=== PATIENT | male | born 1935 | race African-American/Black ===

== ENCOUNTER 2017-01-15 14:57 | Observation (INO) | payer MEDICARE, MEDICAID ==
[2017-01-15 15:34] LABS: #Lymphocytes 1.6 thou/uL (1.20-3.40); #Monocytes 0.8 thou/uL (0.11-0.59); #Neutrophils 5.3 thou/uL (1.40-6.50); %Basophils 0.2 % (0.0-1.0); %Eosinophils 0.1 % (0.0-10.0); %Lymphocytes 21.1 % (21.0-51.0); %Monocytes 9.8 % (0.0-10.0); Hematocrit 39.2 % (42.0-52.0); Mean Platelet Volume 7.3 fL (7.4-10.4); Red Blood Cell (RBC) Count 3.86 mill/uL (4.70-6.10); White Blood Cell (WBC) Count 7.8 thou/uL (4.8-10.8)
[2017-01-15 16:06] LABS: ALT (SGPT) 10 U/L (8-55); AST (SGOT) 19 U/L (5-34); Alkaline Phosphatase 55 U/L (40-150); Anion Gap 13 mmol/L (10-20); BUN (Urea Nitrogen) 22 mg/dL (8.4-25.7); Bilirubin, Total 1.2 mg/dL (0.2-1.2); Calc. Creatinine Clearance 0 mL/min (70-130); Calcium 9.3 mg/dL (7.8-10.44); Carbon Dioxide 21 mmol/L (23-31); Chloride 109 mmol/L (98-107); Estimated GFR-MDRD 64; Globulin 3.7 g/dL (2.4-3.5); Lipase 37 U/L (8-78); Protein, Total 7.4 g/dL (5.8-8.1)
[2017-01-15 16:07] LABS: Bilirubin Negative (Negative); Blood, Urine Negative (Negative); Glucose, Urine (Dipstick) Negative (Negative); Ketone, Urine Negative (Negative); Nitrite Negative (Negative); Protein, Urine (Dipstick) Negative (Neg-Trace)
[2017-01-15 16:09] LABS: Bacteria/HPF None Seen HPF (None Seen); Hyaline Casts/LPF 4-6 HYALINE CAST LPF (0-3 Hyaline); RBC/HPF 0-3 HPF (0-3); Squamous Epithelial 0-3 HPF (0-3)
--- NOTE | 2017-01-15 16:13 | RAD ---
CHEST ONE VIEW: 01/15/17 HISTORY: 81-year-old male with altered mental status with weakness and hallucinations. Febrile to 101. COMPARISON: 11/23/16. FINDINGS: Monitor leads overlie the chest. Left ICD. Mild focal right hemidiaphragm elevation. No confluent pn eumonia, overt edema or pleural effusion. IMPRESSION: Mild stable chronic changes. No acute intrathoracic disease. POS: [facility]
[2017-01-15] MEDS ORDERED: cefTRIAXone\\ROCEPHIN 1 GM VIAL ONE (16:35)
[2017-01-15] MEDS ORDERED: cefTRIAXone\\ROCEPHIN 1 GM, Admixture Fee 1 EACH in Sodium Chloride 0.9% 100 ML IVPB SCH ×2 (16:45→22:00)
[2017-01-15] MEDS ORDERED: Acetaminophen 325 MG TAB PO PRN (18:16)
[2017-01-15] MEDS ORDERED: Acetaminophen 650 MG Suppository PR PRN (18:16)
--- NOTE | 2017-01-15 18:43 | HP ---
PRIMARY CARE PHYSICIAN: Sammi Barrow M.D. CHIEF COMPLAINT: Altered mental status. HISTORY OF PRESENT ILLNESS: Mr. Ryder is a pleasant 81-year-old gentleman who was [place] [facility]. He was transferred [facility] the [facility] from [facility] [place]. He reportedly was being combative and was hallucinating at the [facility]. Patient d oes not recall what happened or why he is in the hospital. He denies any chest pain or shortness of breath. He denies any fevers or chills. He denies any nausea or vomiting. He has reportedly had decreased oral intake. Please note that patient is unable to provide any significant history. History was obtained from re view of medical records and from discussion with the emergency room physician. REVIEW OF SYSTEM: The following complete review of systems was negative, unless otherwise mentioned in the HPI or below: Constitutional: Weight loss or gain, sense of well-being, ability to conduct usual activities, exer cise tolerance. Skin/Breast: Rash, itching, changes in hair growth or loss, nail changes, breast lumps, tenderness, swelling, nipple discharge. Eyes: Vision, double vision, tearing, blind spots, pain. ENT/Mouth: Headaches (location, time of onset, duration, precipitating factors), vertigo, lightheadedness, injury. Vision, double vision, tearing, blind spots, pain, nose bleeding, colds, obstruction, discharge, dental difficulties, gingival bleeding, dentures, neck stif fness, pain, tenderness, masses in thyroid or other areas Cardiovascular: Precordial pain, substernal distress, palpitations, syncope, dyspnea on exertion, o rthopnea, nocturnal paroxysmal dyspnea, edema, cyanosis, hypertension, heart murmurs, varicosities, phlebitis, claudication. Respiratory: Pain, shortness of breath, wheezing, stridor, cough, hemoptysis, fever or night sweats Gastrointestinal: Poor appetite, dysphagia, indigestion, abdominal pain, heartburn, eructation, nathalia sea, vomiting, hematemesis, jaundice, constipation, or diarrhea, abnormal stools (tank-colored, johnathon y, bloody, greasy, foul smelling), flatulence, hemorrhoids, recent changes in bowel habits. Genitourinary: Urgency, frequency, dysuria, nocturia, hematuria, polyuria, oliguria, unusual (or ch eliana in) color of urine, stones, hesitancy, change in size of stream, dribbling, acute retention or incontinence, libido, potency. Musculoskeletal: Pain, swelling, redness or heat of muscles or joints, limitation, of motion, muscular weakness, atrophy, cramps. Neurologic/Psychiatric: Convulsions, paralyses, tremor, incoordination, parasthesias, difficulties with memory of speech, sensory or motor disturbances, or muscular coordination (ataxia, tremor), emo tional problems, anxiety, depression, previous psychiatric care, unusual perceptions, hallucinations . Allergy/Immunologic: Skin rash, anemia, bleeding tendency, polydipsia, polyuria, intolerance to hea t or cold. 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 PSYCHIATRIC HISTORY: Significant for anxiety and depression. PAST SURGICAL HISTORY: Significant for AICD placement, cardiac catheterization in 1998 which showed mild triple vessel coronary artery disease ALLERGIES: No known drug allergies. CURRENT MEDICATIONS: Aspirin 81 mg daily, Coreg 3.125 mg 2 times a day, doxazosin 2 mg daily, potas sium chloride 10 mEq daily, Lasix 20 mg daily, Lexapro 20 mg daily, lisinopril 2.5 mg daily, trazodo ne 25 mg daily, multivitamins 1 tablet daily, MiraLax 17 grams daily, milk of magnesia 30 mL every 1 2 hours as needed, lovastatin 20 mg daily, Tylenol 650 g every 6 hours as needed. SOCIAL HISTORY: The patient denies tobacco use, alcohol use or recreational drug use. FAMILY HISTORY: Several family members with hypertension and heart disease. CODE STATUS: I could not elicit his code status. This will need to be clarified. PHYSICAL EXAMINATION: GENERAL: Mr. Ryder is awake and alert, not in acute distress. VITAL SIGNS: Blood pressure is 132/79, pulse is 80, he is breathing at rate of 20 and saturating 99 % on room air. He is afebrile. When he presented to the emergency room, he had a pulse of 114 and respiratory rate of 21. EYES: No scleral icterus. No conjunctival pallor. ENT: Moist mucosal membranes. No oropharyngeal erythema or exudates. NECK: Supple, nontender, normal range of movement. Trachea is midline. RESPIRATORY: Accessory muscles of breathing are not active. Chest wall movements are symmetric myron aterally. LUNGS: Clear to auscultation without wheeze, rhonchi or crepitations. CARDIOVASCULAR: S1 and S2 are heard, regular. LUNGS: Peripheral pulses palpable. No carotid bruit, no pericardial rub. ABDOMEN: Soft, nontender, bowel sounds heard, no hepatomegaly, no splenomegaly. NEUROLOGIC: Cranial nerves II-XII are intact. Deep tendon reflexes are 2+. PSYCHIATRIC: Normal mood and normal affect, patient is oriented to person, knows he is in the hospi don, but thinks it is in [place], he is not oriented to time. MUSCULOSKELETAL: Power is 5/5 in all 4 extremities. He has trace bilateral lower extremity edema. SKIN: No rashes or subcutaneous nodules. LYMPHATIC: No cervical lymphadenopathy. LABORATORY DATA: Mr. Ryder' labs and investigations were reviewed. I reviewed his electrocardiog sury, which shows normal sinus rhythm, no ST changes to suggest an acute coronary syndrome. I also r eviewed his chest x-ray, which does not show any pulmonary infiltrates. Laboratory investigation sh ow a normal white count, macrocytic anemia with hemoglobin 12.6, normal platelet count, normal sodiu m, normal potassium, elevated creatinine of 1.31, last known creatinine 1.25 on 11/30/2016, unremark able liver profile, normal lipase and urinalysis that is positive for moderate amount of leukocyte e sterase. ASSESSMENT AND PLAN: Mr. Ryder is a pleasant 81-year-old gentleman who was seen at [facility] on 01/15/2017. His problem list includes: 1. Acute encephalopathy, etiology unclear. It could be infectious secondary to urinary tract infe ction. Other etiologies are also possible. We will admit patient to the hospital for workup and tr eatment. We will check troponin. We will also check CT scan of the brain. 2. Sepsis: Mr. Ryder' presentation meets the criteria for sepsis, suspected source of infection in the urine. He will be treated with antibiotics. He will receive gentle hydration, given his his tory of congestive heart failure. 3. Urinary tract infection. We will continue ceftriaxone, which has already been started by the em ergency room physician, await urine cultures and blood cultures. 4. Hypertension. Continue home medications, monitor vital signs and titrate antihypertensives as n eeded. 5. Acute renal insufficiency: Mild, and recheck creatinine after providing hydration. 6. Coronary artery disease. Patient has a history of coronary artery disease. We will check his t roponins. 7. Benign prostatic hypertrophy: Stable. Many thanks for allowing me to participate in your patient's care. Please feel free to contact me w ith any questions or concerns. LEVEL OF RISK: High. LEVEL OF COMPLEXITY: High.
--- NOTE | 2017-01-15 18:51 | CT ---
BRAIN CT WITHOUT IV CONTRAST: 01/15/17 HISTORY: 81-year-old male with altered mental status. COMPARISON: 11/30/16. FINDINGS: Bilateral atrophy and chronic white matter ischemic changes which are fairly extensive but stable fr om prior exam. No focal mass or midline shift. No intra or extra-axial hemorrhage. IMPRESSION: Marked atrophy and chronic white matter ischemic changes, stable. No mass or bleed. POS: [facility]
[2017-01-15 18:57] LABS: Troponin I 0.045 ng/mL (< 0.028)
[2017-01-15] MEDS: Sodium Chloride 0.9% 1,000 ML IV SCH (21:35)
[2017-01-15 22:18] LABS: Troponin I 0.067 ng/mL (< 0.028)
[2017-01-16 03:07] VITALS: BMI 21.9
[2017-01-16 04:12] LABS: Anion Gap 9 mmol/L (10-20); BUN (Urea Nitrogen) 21 mg/dL (8.4-25.7); Calc. Creatinine Clearance 50 mL/min (70-130); Calcium 8.8 mg/dL (7.8-10.44); Carbon Dioxide 26 mmol/L (23-31); Chloride 112 mmol/L (98-107); Estimated GFR-MDRD 82
[2017-01-16 04:29] LABS: Hematocrit 32.2 % (42.0-52.0); Neutrophil 60 % (42-75); Red Blood Cell (RBC) Count 3.18 mill/uL (4.70-6.10); White Blood Cell (WBC) Count 6.6 thou/uL (4.8-10.8)
--- NOTE | 2017-01-16 07:52 | PDOC.PN ---
- Subjective Encounter Start Date: 01/16/17 Encounter Start Time: 07:15 Subjective: RESTING COMFORTABLY, NO BEHAVIOR ISSUS PER LOAN SERVICING OFFICER. - Objective MAR Reviewed: Yes Vital Signs & Weight: Vital Signs (12 hours) Temp Pulse Resp BP Pulse Ox 01/16/17 04:00 98.1 F 77 18 114/77 100 01/16/17 00:00 98.1 F 76 18 120/66 100 01/15/17 20:00 97 F L 78 18 120/66 100 Weight Weight 139 lb 15.896 oz Result Diagrams: 01/16/17 03:39 01/16/17 03:39 Phys Exam - Physical Examination Constitutional: NAD HEENT: PERRLA, moist MMs TEMPORAL WASTING Neck: supple, full ROM Respiratory: clear to auscultation bilateral Cardiovascular: RRR Gastrointestinal: soft, non-tender Musculoskeletal: no edema Neurological: moves all 4 limbs Deviation from normal: ALERT AND COOPERATIVE Skin: no rash Dx/Plan (1) UTI (urinary tract infection) Status: Acute (2) Altered mental status Code(s): R41.82 - ALTERED MENTAL STATUS, UNSPECIFIED Status: Acute (3) Alzheimer's dementia Code(s): G30.9 - ALZHEIMER'S DISEASE, UNSPECIFIED Status: Chronic (4) BPH (benign prostatic hyperplasia) Code(s): N40.0 - BENIGN PROSTATIC HYPERPLASIA WITHOUT LOWER URINRY TRACT SYMP Status: Chronic (5) CAD (coronary artery disease) Code(s): I25.10 - ATHSCL HEART DISEASE OF [place] CORONARY ARTERY W/O ANG PCTRS Status: Chronic - Plan continue antibiotics, social welfare clerk LOAN SERVICING OFFICER REPORTS PATIENT COOPERATIVE. THEY REPORT THAT HE WAS -: VERY HUNGRY AND COVERED IN DRY FECES IF HE WAS NEGLECTED. -: WILL GET CM AND SS INVOLVED * .
[2017-01-16] MEDS ORDERED: traZODone HCl 50 MG TAB PO PRN (07:54)
[2017-01-16] MEDS ORDERED: Acetaminophen 325 MG TAB PO PRN (07:54)
[2017-01-16] MEDS ORDERED: Milk Of Magnesia 30 ML UDCUP PO PRN (07:54)
[2017-01-16] MEDS: Multivitamin W/ Minerals 1 TAB PO SCH (09:02)
[2017-01-16] MEDS: Carvedilol 3.125 MG TAB PO SCH ×2 (09:03→17:24)
[2017-01-16] MEDS: Escitalopram Oxalate 20 mg Tablet PO SCH (09:03)
[2017-01-16] MEDS: Lisinopril 2.5 MG TAB PO SCH (09:03)
[2017-01-16] MEDS: Aspirin 81 mg Enteric Coated Tablet PO SCH (09:03)
[2017-01-16] MEDS: Furosemide 20 MG TAB PO SCH (09:04)
[2017-01-16] MEDS: Potassium Chloride 10 MEQ TAB PO SCH (09:23)
[2017-01-16] MEDS: Sodium Chloride 0.9% 1,000 ML IV SCH (15:55)
[2017-01-16] MEDS ORDERED: Simvastatin 5 MG TAB PO SCH (17:00)
[2017-01-16] MEDS ORDERED: cefTRIAXone\\ROCEPHIN 1 GM, Admixture Fee 1 EACH in Sodium Chloride 0.9% 100 ML IVPB SCH ×6 (18:00)
[2017-01-16] MEDS ORDERED: Doxazosin 2 MG TAB PO SCH (21:00)
[2017-01-17 04:18] LABS: #Basophils 0.1 thou/uL (0.0-0.2); #Eosinphils 0.3 thou/uL (0.0-0.7); #Lymphocytes 1.7 thou/uL (1.20-3.40); #Monocytes 0.7 thou/uL (0.11-0.59); #Neutrophils 2.8 thou/uL (1.40-6.50); %Eosinophils 4.7 % (0.0-10.0); %Monocytes 12.9 % (0.0-10.0); Hematocrit 32.1 % (42.0-52.0); Mean Platelet Volume 7.6 fL (7.4-10.4); Red Blood Cell (RBC) Count 3.12 mill/uL (4.70-6.10); White Blood Cell (WBC) Count 5.6 thou/uL (4.8-10.8)
[2017-01-17 04:36] LABS: Anion Gap 9 mmol/L (10-20); BUN (Urea Nitrogen) 17 mg/dL (8.4-25.7); Calc. Creatinine Clearance 51 mL/min (70-130); Calcium 8.3 mg/dL (7.8-10.44); Carbon Dioxide 26 mmol/L (23-31); Chloride 110 mmol/L (98-107); Estimated GFR-MDRD 84
[2017-01-17] MEDS: Aspirin 81 mg Enteric Coated Tablet PO SCH (08:30)
[2017-01-17] MEDS: Lisinopril 2.5 MG TAB PO SCH (08:30)
[2017-01-17] MEDS: Escitalopram Oxalate 20 mg Tablet PO SCH (08:30)
[2017-01-17] MEDS: Carvedilol 3.125 MG TAB PO SCH (08:30)
[2017-01-17] MEDS: Furosemide 20 MG TAB PO SCH (08:31)
[2017-01-17] MEDS: Multivitamin W/ Minerals 1 TAB PO SCH (08:31)
[2017-01-17] MEDS: Potassium Chloride 10 MEQ TAB PO SCH (08:31)
--- NOTE | 2017-01-17 08:57 | DIS ---
DATE OF ADMISSION: 01/15/2017 DATE OF DISCHARGE: 01/17/2017 PRIMARY DISCHARGE DIAGNOSIS: Altered mental status. SECONDARY DIAGNOSIS: Urinary tract infection. HOSPITAL COURSE: The patient was admitted from [facility] secondary to being combated and being altered. The patient was found to have a urinalysis that had moderate leukocyte esterase. No bacteria was seen and all urine and blood cultures were negative. The patient was treated for possible toxic metabolic encephalopathy from urinary tract infection. He received 3 doses of Roceph in. The patient was calm and cooperative with his entire stay here. No problems with nursing staff or during physician examinations. The patient was alert and oriented to person and place upon day of discharge. He was deemed stable to return back to the halfway with no additional medication s. CONSULTATIONS: None. PROCEDURES: None. DISCHARGE DISPOSITION: To [facility]. DISCHARGE DIET: Heart healthy. DISCHARGE ACTIVITIES: As tolerated. DISCHARGE MEDICATIONS: He is to resume his home medication list. PHYSICAL EXAMINATION: GENERAL: He is calm and cooperative, in no acute distress. HEAD: Normocephalic, atraumatic. There is bilateral temporal wasting. EYE: Extraocular muscles intact. LUNGS: Clear to auscultation. CARDIAC: Regular rate and rhythm. ABDOMEN: Nontender, nondistended. EXTREMITIES: No clubbing, cyanosis or edema. FOLLOWUP: The patient is to follow up with his PCP within 2-3 weeks.
[2017-01-17 12:07] VITALS: BP 100/61; TEMP 97.4
[2017-01-17] MEDS: Sodium Chloride 0.9% 1,000 ML IV SCH (13:12)
[2017-01-17] MEDS ORDERED: cefTRIAXone\\ROCEPHIN 1 GM, Syringe 0.4 ML in Sterile Water 9.6 ML SLOW IVP SCH (18:00)
--- NOTE | 2017-01-22 15:17 | EKG ---
Test Reason : Blood Pressure : / mmHG Vent. Rate : 095 BPM Atrial Rate : 095 BPM P-R Int : 172 ms QRS Dur : 128 ms QT Int : 398 ms P-R-T Axes : 086 -44 105 degrees QTc Int : 500 ms Normal sinus rhythm Left axis deviation Left bundle branch block No STEMI Abnormal ECG Confirmed by MIKE CASTILLO M.D. ([id number]), film editor JACKELIN SIERRA ([id number]) on 01/22/2017 3:17:39 PM Referred By: Confirmed By:MIKE CASTILLO M.D.
== END 2017-01-17 15:28 ==
LOC: ERS 14:57 → ONC 17:55
PROVIDERS: ADMIT Internal Medicine; ATTEND Internal Medicine
DX: R41.82 Altered mental status, unspecified (principal); N39.0 Urinary tract infection, site not specified; I11.0 Hypertensive heart disease with heart failure; I50.22 Chronic systolic (congestive) heart failure; I69.351 Hemiplegia and hemiparesis following cerebral infarction affecting right dominant side; I69.328 Other speech and language deficits following cerebral infarction; H54.8 Legal blindness, as defined in USA; I34.0 Nonrheumatic mitral (valve) insufficiency; I25.10 Atherosclerotic heart disease of native coronary artery without angina pectoris; N40.0 Benign prostatic hyperplasia without lower urinary tract symptoms; R27.0 Ataxia, unspecified; R53.81 Other malaise; F32.9 Major depressive disorder, single episode, unspecified; F41.9 Anxiety disorder, unspecified; Z79.82 Long term (current) use of aspirin; Z79.899 Other long term (current) drug therapy; Z95.810 Presence of automatic (implantable) cardiac defibrillator; Z98.890 Other specified postprocedural states; Z87.891 Personal history of nicotine dependence
CPT/HCPCS: 51701; 70450; 71010; 80048 ×2; 80053; 82140; 82553 ×2; 83690; 84484 ×2; 85025 ×3; 87040; 87086; 93005; 96361 ×4; 96366; 96374; 99285; G0378; 36415; 81003; 81015; A4216; J0696; J7050

== ENCOUNTER 2017-01-21 18:26 | Emergency (ER) | payer MEDICARE, MEDICAID ==
[2017-01-21 19:44] LABS: #Lymphocytes 1.5 thou/uL (1.20-3.40); #Monocytes 0.7 thou/uL (0.11-0.59); #Neutrophils 3.3 thou/uL (1.40-6.50); %Basophils 0.6 % (0.0-1.0); %Eosinophils 0.4 % (0.0-10.0); %Lymphocytes 26.5 % (21.0-51.0); Hematocrit 37.2 % (42.0-52.0); Mean Platelet Volume 7.5 fL (7.4-10.4); Red Blood Cell (RBC) Count 3.66 mill/uL (4.70-6.10); White Blood Cell (WBC) Count 5.5 thou/uL (4.8-10.8)
[2017-01-21 20:05] LABS: ALT (SGPT) 8 U/L (8-55); AST (SGOT) 17 U/L (5-34); Alkaline Phosphatase 58 U/L (40-150); Anion Gap 11 mmol/L (10-20); BUN (Urea Nitrogen) 16 mg/dL (8.4-25.7); Calc. Creatinine Clearance 0 mL/min (70-130); Calcium 9.3 mg/dL (7.8-10.44); Carbon Dioxide 26 mmol/L (23-31); Chloride 106 mmol/L (98-107); Estimated GFR-MDRD 70; Globulin 3.6 g/dL (2.4-3.5); Protein, Total 7.1 g/dL (5.8-8.1)
[2017-01-21 20:08] LABS: Lactic Acid - Sepsis 1.4 mmol/L (0.5-2.2)
[2017-01-21 21:08] LABS: Bilirubin Negative (Negative); Blood, Urine Negative (Negative); Glucose, Urine (Dipstick) Negative (Negative); Ketone, Urine Trace mg/dL (Negative); Nitrite Negative (Negative); Protein, Urine (Dipstick) Negative (Neg-Trace)
[2017-01-21 21:10] LABS: Bacteria/HPF None Seen HPF (None Seen); Hyaline Casts/LPF 0-3 HYALINE CAST LPF (0-3 Hyaline); Squamous Epithelial 0-3 HPF (0-3); WBC/HPF 0-3 HPF (0-3)
--- NOTE | 2017-01-21 21:21 | RAD ---
PORTABLE UPRIGHT FRONTAL CHEST RADIOGRAPH 01/21/17 COMPARISON: 01/15/17 HISTORY: Altered mental status, urinary tract infection. FINDINGS: The heart and mediastinal contours are stable. Stable single lead left sided AICD, lead overlying re gion of right ventricle. No pneumothorax, pleural fluid, focal consolidation, or alveolar edema. IMPRESSION: No acute findings. POS: [facility]
--- NOTE | 2017-01-21 21:50 | RAD ---
TWO VIEWS OF ABDOMEN 01/21/17 COMPARISON: None. HISTORY: Abdominal distention, altered mental status. Dysuria and foul smelling urine. FINDINGS: Upright imaging demonstrates no evidence for free intraperitoneal air. There is mild gaseous distent ion on supine imaging, particularly in the region of the sigmoid colon. No evidence for small bowel obstruction. Single lead transvenous pacing device in place. IMPRESSION: Mild gaseous distention of the sigmoid colon. No evidence for small bowel obstruction or free intrap eritoneal air. If further assessment for abdominal distention is clinically warranted, CT suggested. POS: [facility]
--- NOTE | 2017-03-18 15:05 | EKG ---
Test Reason : Blood Pressure : / mmHG Vent. Rate : 088 BPM Atrial Rate : 088 BPM P-R Int : 166 ms QRS Dur : 136 ms QT Int : 398 ms P-R-T Axes : 064 -54 086 degrees QTc Int : 481 ms Normal sinus rhythm Left axis deviation Non-specific intra-ventricular conduction block Nonspecific T wave abnormality Abnormal ECG When compared with ECG of 15-JAN-2017 No significant change was found Confirmed by RITA GUDINO, EDGAR Sanders ([id number]), newspaper copy editor JACKELIN SIERRA ([id number]) on 03/18/2017 3:05:01 PM Referred By: Confirmed By:EDGAR SALINAS MD
== END 2017-01-22 00:16 | disposition home or self-care (01) ==
LOC: ERS 18:26
DX: F03.90 Unspecified dementia, unspecified severity, without behavioral disturbance, psychotic disturbance, mood disturbance, and anxiety (principal); E78.5 Hyperlipidemia, unspecified; F32.9 Major depressive disorder, single episode, unspecified; F41.9 Anxiety disorder, unspecified; I11.0 Hypertensive heart disease with heart failure; I50.9 Heart failure, unspecified; I25.2 Old myocardial infarction; Z86.73 Personal history of transient ischemic attack (TIA), and cerebral infarction without residual deficits; N40.0 Benign prostatic hyperplasia without lower urinary tract symptoms; Z79.82 Long term (current) use of aspirin; Z79.899 Other long term (current) drug therapy
CPT/HCPCS: 36415; 51701; 71010; 74020; 80053; 81003; 81015; 83605; 85025; 93005

== ENCOUNTER 2017-11-18 00:11 | Emergency (ER) | payer MEDICARE, MEDICAID ==
[2017-11-18 01:24] LABS: Bilirubin Small (Negative); Blood, Urine Negative (Negative); Clarity CLEAR (Clear); Glucose, Urine (Dipstick) Negative (Negative); Leukocyte Moderate (Negative); Nitrite Negative (Negative); Protein, Urine (Dipstick) Negative (Neg-Trace); Specific Gravity, Urine 1.021 (1.002-1.036); pH, Urine 5.5 (5.0-9.0)
[2017-11-18 01:27] LABS: Bacteria/HPF None Seen HPF (None Seen); Squamous Epithelial 0-3 HPF (0-3)
[2017-11-18 01:33] LABS: Pathc Cast-AUWi Flag 2.61 (0-2.49)
[2017-11-18 01:59] LABS: Manual Microscopic Reviewed? No Path Casts Seen
[2017-11-18] MEDS ORDERED: Ondansetron HCl/PF 4 MG/2 ML Vial ONE (02:49)
== END 2017-11-18 03:17 ==
LOC: ERS 00:11
DX: N39.0 Urinary tract infection, site not specified (principal); F03.90 Unspecified dementia, unspecified severity, without behavioral disturbance, psychotic disturbance, mood disturbance, and anxiety; E78.5 Hyperlipidemia, unspecified; E56.9 Vitamin deficiency, unspecified; I11.0 Hypertensive heart disease with heart failure; I50.9 Heart failure, unspecified; Z86.73 Personal history of transient ischemic attack (TIA), and cerebral infarction without residual deficits; F41.9 Anxiety disorder, unspecified; F32.9 Major depressive disorder, single episode, unspecified; Z79.82 Long term (current) use of aspirin; Z79.01 Long term (current) use of anticoagulants; Z79.899 Other long term (current) drug therapy
CPT/HCPCS: 81003; 81015; 99285; J2405

== ENCOUNTER 2018-02-14 20:33 | Inpatient (IN) | payer MEDICARE, MEDICAID ==
[2018-02-14 21:05] LABS: #Eosinphils 0.2 thou/uL (0.0-0.7); #Lymphocytes 2.5 thou/uL (1.20-3.40); #Neutrophils 3.7 thou/uL (1.40-6.50); %Basophils 0.1 % (0.0-1.0); %Eosinophils 3.4 % (0.0-10.0); %Lymphocytes 34.2 % (21.0-51.0); %Monocytes 12.9 % (0.0-10.0); %Neutrophils 49.4 % (42.0-75.0); Hemoglobin 11.2 g/dL (14.0-18.0); Mean Corpuscular HGB CONC 32.3 g/dL (32.0-36.0); Mean Corpuscular Hemoglobin 32.6 pg (27.0-31.0); Mean Platelet Volume 8.1 fL (7.4-10.4); Platelet Count 136 thou/uL (130-400); Red Blood Cell (RBC) Count 3.43 mill/uL (4.70-6.10); White Blood Cell (WBC) Count 7.4 thou/uL (4.8-10.8)
[2018-02-14 21:25] LABS: ALT (SGPT) 17 U/L (8-55); AST (SGOT) 30 U/L (5-34); Albumin 3.2 g/dL (3.4-4.8); Alkaline Phosphatase 72 U/L (40-150); Anion Gap 12 mmol/L (10-20); BUN (Urea Nitrogen) 18 mg/dL (8.4-25.7); Bilirubin, Total 0.9 mg/dL (0.2-1.2); Calc. Creatinine Clearance 0 mL/min (70-130); Calcium 8.6 mg/dL (7.8-10.44); Carbon Dioxide 26 mmol/L (23-31); Chloride 104 mmol/L (98-107); Estimated GFR-MDRD 62; Globulin 3.4 g/dL (2.4-3.5); Glucose 218 mg/dL (83-110); Potassium 3.9 mmol/L (3.5-5.1); Protein, Total 6.6 g/dL (5.8-8.1); Sodium 138 mmol/L (136-145)
[2018-02-14 21:26] LABS: CKMB 1.1 ng/mL (0-6.6); Troponin I 0.051 ng/mL (< 0.028)
--- NOTE | 2018-02-14 21:38 | RAD ---
PORTABLE UPRIGHT FRONTAL CHEST RADIOGRAPH: 02/14/18 COMPARISON: 01/21/17. HISTORY: Dyspnea, sepsis alert. FINDINGS: The heart and mediastinal contours are stable. Stable single lead AICD. Elevation of right hemidiaphr agm noted. No pneumothorax, pleural fluid, lobar consolidation, or alveolar edema. IMPRESSION: No acute findings. POS: [facility]
[2018-02-14] MEDS ORDERED: Acetaminophen 500 MG TAB ONE (21:52)
[2018-02-14 22:00] LABS: Bilirubin Negative (Negative); Blood, Urine Negative (Negative); Clarity CLEAR (Clear); Glucose, Urine (Dipstick) 100 mg/dL (Negative); Leukocyte Moderate (Negative); Nitrite Negative (Negative); Protein, Urine (Dipstick) Negative (Neg-Trace); Specific Gravity, Urine 1.017 (1.002-1.036)
[2018-02-14 22:19] LABS: Hyaline Casts/LPF 0-3 HYALINE CAST LPF (0-3 Hyaline); RBC/HPF 0-3 HPF (0-3); Squamous Epithelial 0-3 HPF (0-3)
[2018-02-14 22:20] LABS: Bacteria/HPF Rare-Few HPF (None Seen)
[2018-02-14] MEDS ORDERED: Piperacillin/Tazobactam 4.5 GM VIAL ONE (22:48)
[2018-02-15] MEDS ORDERED: Albuterol Sulfate 2.5 mg/3 ml Neb ONE (00:12)
[2018-02-15 01:13] LABS: Lactic Acid 2.1 mmol/L (0.5-2.2)
[2018-02-15] MEDS ORDERED: Bisacodyl 10 MG SUPP PR PRN (08:47)
[2018-02-15] MEDS ORDERED: Zolpidem Tartrate 5 MG TAB PO PRN (08:47)
[2018-02-15] MEDS ORDERED: Acetaminophen 325 MG TAB PO PRN (08:47)
[2018-02-15] MEDS ORDERED: Senokot S 8.6-50 MG TAB PO PRN (08:47)
[2018-02-15] MEDS ORDERED: HYDROcodone/Acetaminophen 5/325 mg Tablet PO PRN (08:47)
[2018-02-15] MEDS ORDERED: Calcium Carbonate 500 MG ChewTAB PO PRN (08:47)
[2018-02-15] MEDS ORDERED: Bisacodyl 5 MG TAB PO PRN (08:47)
[2018-02-15] MEDS ORDERED: Ondansetron ODT 4 MG TAB PO PRN (08:47)
[2018-02-15] MEDS ORDERED: Ondansetron PF 4 MG/2 ML Vial IVP PRN (08:47)
[2018-02-15] MEDS ORDERED: Loperamide HCl 2 MG CAP PO PRN (08:47)
[2018-02-15 09:39] LABS: Troponin I 0.051 ng/mL (< 0.028)
[2018-02-15] MEDS ORDERED: methylPREDNISolone Sod Succ/PF 125 MG/2 ML VIAL IVP SCH (09:45)
[2018-02-15] MEDS: Escitalopram Oxalate 20 mg Tablet PO SCH (11:54)
[2018-02-15] MEDS: Lisinopril 2.5 MG TAB PO SCH (11:54)
[2018-02-15] MEDS: Saccharomyces boulardii 250 MG CAP PO SCH (11:54)
[2018-02-15] MEDS: Doxazosin 2 MG TAB PO SCH (11:54)
[2018-02-15] MEDS: Polyethylene Glycol 3350 17 GM Packet PO SCH (11:55)
[2018-02-15] MEDS: cefTRIAXone\\ROCEPHIN 1 GM in Sodium Chloride 0.9% 100 ML IVPB SCH (11:58)
[2018-02-15] MEDS ORDERED: Enoxaparin Sodium 40 MG/0.4 ML SYRINGE ONE (11:58)
[2018-02-15] MEDS: Enoxaparin Sodium 40 MG/0.4 ML SYRINGE SC SCH (11:58)
[2018-02-15 12:42] LABS: CKMB 1.2 ng/mL (0-6.6)
--- NOTE | 2018-02-15 12:45 | HP ---
PRIMARY CARE PHYSICIAN: Dr. Barrow. REASON FOR ADMISSION: Sent from [facility] for possible sepsis. HISTORY OF PRESENT ILLNESS: An 82-year-old -[place] male who lives at the [facility]. He is extremely poor historian. He was sent from intermediate for sepsis. The patient was febrile there with a temperature of 103. When he arrived to the emergency room, his temperature was 99. He was wheezing all over his lungs and he was tachypneic and relatively hypotensive. The patient had sepsis alert in the emergency room. Routine blood tests showed normal CBC, normal BMP, elevated troponin, and lactic acidosis. This morning when I saw, at that time, the patient was tachypneic, wheezing all over his lungs and he was not able to provide any history and no family member was present at the bedside. REVIEW OF SYSTEMS: All review of system tried to review with the patient, but unable to review because of altered mental status. PAST MEDICAL HISTORY: Chronic systolic congestive heart failure with ejection fraction 10% to 15%, history of CVA of middle cerebral artery distribution with right-sided weakness, legal blindness, severe mitral regurgitation, [id number] tricuspid regurgitation, AICD in place, Alzheimer dementia with Lewy body disease, benign enlargement of prostate, protein-calorie malnutrition, ischemic cardiomyopathy, dementia. PAST SURGICAL HISTORY: AICD in place. Other surgical history cannot be obtained other than cardiac catheterization in 1998, which showed mild triple-vessel CAD. PAST PSYCHIATRIC HISTORY: Anxiety, depression, and dementia. ALLERGIES: NO KNOWN DRUG ALLERGIES. CURRENT HOME MEDICATIONS: 1. Aspirin 81 mg p.o. daily. 2. Cardura 2 mg p.o. at bedtime. 3. Lexapro 40 mg daily. 4. Multivitamin 1 tablet daily. 5. MiraLAX 17 g daily. 6. Potassium chloride 10 mEq p.o. daily. 7. Trazodone 25 mg p.o. at bedtime. 8. Coreg 3.125 mg b.i.d. 9. Lasix 20 mg daily. 10. Lisinopril 2.5 mg p.o. daily. 11. Lovastatin 20 mg p.o. daily. FAMILY HISTORY: Unable to obtain, but based on previous records, several family members have history of hypertension and heart disease. EMERGENCY ROOM COURSE: The patient has received Zosyn, Levaquin, vancomycin, Tylenol, IV fluids, DuoNeb therapy. SOCIAL HISTORY: Patient lives at [facility] intermediate, he does not have history of current tobacco, alcohol or drug abuse. PHYSICAL EXAMINATION: VITAL SIGNS: Currently, blood pressure 110/78, pulse 97, respiratory rate 28, temperature 101, saturations 98% on 2 L oxygen. Weight 110.7 kg. GENERAL: The patient is currently demented, legally blind, wheezing. HEENT: Head, normocephalic, atraumatic. Eyes, pupils equal, round and reactive to light. Extraocular muscles intact. ENT, oropharynx within normal limits. Moist mucous membranes. No oral lesions. No pharyngeal erythema. No exudate. NECK: Supple. No JVD. No thyromegaly. No meningeal signs of irritation. LUNGS: Bilateral diffuse wheezing, a few rales noted. CARDIAC: S1 and S2 regular. Systolic murmur present at apex as well as parasternal. No gallop. No rub. ABDOMEN: Soft. Bowel sounds present. Nontender. Nondistended. No organomegaly. No mass. No suprapubic tenderness. BACK: Unremarkable. No CVA tenderness. EXTREMITIES: Upper extremities; passive movement of all joints is normal. Lower extremities, no edema. Good distal pulses. No calf tenderness. SKIN: No skin rash. HEMATOLOGICAL: No lymphadenopathy. NEUROLOGIC: Grossly nonfocal examination. The patient is moving all 4 limbs. Detailed neurological examination is not possible because the patient is not cooperative. SIGNIFICANT LABORATORY DATA: EKG is showing normal sinus rhythm, nonspecific ST -T changes. Chest x-ray, based on my review, no acute cardiopulmonary process. CBC; WBC 7.4, hemoglobin 11.2, platelets 136. BMP; sodium 138, potassium 3.9, chloride 104, carbon dioxide 26, anion gap 12, BUN 18, creatinine 1.33, glucose 218, calcium 8.6, lactic acid 2.7. LFTs; AST 30, ALT 17, alkaline phosphatase 72, albumin 3.2. Troponin 0.051 and 0.051. BNP 476.8. Urinalysis suggestive of UTI. ASSESSMENT AND PLAN: Impression: 1. Acute bronchitis. The patient will require broad spectrum antibiotic therapy with Rocephin 1 g q.24h., Levaquin 750 mg daily, Solu-Medrol 40 mg IV q.8h., Mucinex 600 mg twice daily, and DuoNeb q.6h. and p.r.n. basis. 2. Acute on chronic systolic congestive heart failure, [employer] stage C. The patient will need Lasix 20 mg IV b.i.d., Coreg 3.125 mg b.i.d., and lisinopril 2.5 mg p.o. daily. 3. Urinary tract infection. Urine culture sent. Continue Rocephin and Levaquin and follow up on urine culture results. 4. Encephalopathy, acute on chronic. Avoid benzodiazepine type of medication to avoid getting worsening. Most likely related with underlying urinary tract infection and bronchitis. 5. Dyslipidemia. Continue Lipitor 10 mg p.o. nightly. 6. Anxiety and depression. Continue Lexapro 40 mg p.o. daily. 7. Chronic kidney disease stage 3. Monitor renal function. Avoid nephrotoxic agents. 8. Elevated troponin, likely due to demand ischemia. 9. Lactic acidosis, likely due to underlying urinary tract infection and bronchitis. Repeat lactic acid is normal. 10. Macrocytic anemia. Add folic acid and vitamin B12 therapy on his regimen. 11. Deep venous thrombosis prophylaxis. Lovenox 40 mg subcutaneous daily. 12. Gastrointestinal prophylaxis. Pepcid 20 mg p.o. b.i.d. 13. Code status, the patient is full code. The patient does not have any surrogate decision maker. DISPOSITION PLAN: Based on clinical course, we are expecting the patient to stay in the hospital for more than 2 midnights. Plan of care discussed with the patient. This patient will need PT evaluation while in the hospital. Job ID: [id number] [id number]
[2018-02-15] MEDS ORDERED: Prevnar 13-Val Conj/PF 0.5 ML SYRINGE IM ONE (15:30)
[2018-02-15 16:05] VITALS: BMI 21.2
[2018-02-15] MEDS: Multivitamin W/ Minerals 1 TAB PO SCH (16:10)
[2018-02-15] MEDS: Famotidine 20 MG TAB PO SCH ×2 (16:10→21:22)
[2018-02-15] MEDS: Furosemide 20 MG/2 ML VIAL SLOW IVP SCH (16:16)
[2018-02-15] MEDS: Carvedilol 3.125 MG TAB PO SCH (16:16)
[2018-02-15] MEDS: Sodium Chloride 0.9% 10 ML ONE ×2 (16:20→21:23)
[2018-02-15] MEDS: Mometasone/Formoterol 120 PUFF INHALER INH SCH (18:38)
[2018-02-15] MEDS: Atorvastatin Calcium 10 MG TAB PO SCH (21:23)
[2018-02-15] MEDS: guaiFENesin ER 600 MG TAB PO SCH (21:23)
[2018-02-16] MEDS: Furosemide 20 MG/2 ML VIAL SLOW IVP SCH ×2 (05:45→15:15)
[2018-02-16] MEDS: Sodium Chloride 0.9% 10 ML ONE ×2 (05:45→21:30)
[2018-02-16 06:19] LABS: #Lymphocytes 1.1 thou/uL (1.20-3.40); #Monocytes 0.1 thou/uL (0.11-0.59); #Neutrophils 3.6 thou/uL (1.40-6.50); %Basophils 0.4 % (0.0-1.0); %Eosinophils 0.3 % (0.0-10.0); %Monocytes 2.8 % (0.0-10.0); %Neutrophils 73.6 % (42.0-75.0); Hemoglobin 11.1 g/dL (14.0-18.0); Mean Corpuscular HGB CONC 32.9 g/dL (32.0-36.0); Mean Corpuscular Hemoglobin 32.8 pg (27.0-31.0); Mean Corpuscular Volume 99.7 fL (78.0-98.0); Mean Platelet Volume 8.2 fL (7.4-10.4); Platelet Count 144 thou/uL (130-400); RBC Distribution Width 12.7 % (11.5-14.5); Red Blood Cell (RBC) Count 3.39 mill/uL (4.70-6.10); White Blood Cell (WBC) Count 4.8 thou/uL (4.8-10.8)
[2018-02-16 06:33] LABS: ALT (SGPT) 14 U/L (8-55); AST (SGOT) 27 U/L (5-34); Alkaline Phosphatase 67 U/L (40-150); Anion Gap 12 mmol/L (10-20); BUN (Urea Nitrogen) 18 mg/dL (8.4-25.7); Bilirubin, Total 0.9 mg/dL (0.2-1.2); Calc. Creatinine Clearance 42 mL/min (70-130); Calcium 8.1 mg/dL (7.8-10.44); Carbon Dioxide 22 mmol/L (23-31); Chloride 106 mmol/L (98-107); Estimated GFR-MDRD 68; Globulin 3.6 g/dL (2.4-3.5); Glucose 135 mg/dL (83-110); Potassium 4.2 mmol/L (3.5-5.1); Protein, Total 6.6 g/dL (5.8-8.1); Sodium 136 mmol/L (136-145)
[2018-02-16] MEDS: Mometasone/Formoterol 120 PUFF INHALER INH SCH ×2 (07:37→18:55)
[2018-02-16] MEDS ORDERED: Polyethylene Glycol 3350 17 GM Packet PO PRN (07:55)
--- NOTE | 2018-02-16 10:19 | PDOC.PN ---
- Subjective Encounter Start Date: 02/16/18 Encounter Start Time: 07:45 -: old records requested/rev Patient seen and examined. No new complaints. No overnight events today he feels better, less dyspnea - Objective Resuscitation Status - Order Detail: 02/15/18 08:47 Resuscitation Status Routine Resuscitation Status: FULL: Full Resuscitation MAR Reviewed: Yes Vital Signs & Weight: Vital Signs (12 hours) Temp Pulse Resp BP Pulse Ox 02/16/18 08:15 98 F 76 20 121/70 97 02/16/18 07:38 97 02/16/18 07:34 71 20 97 02/16/18 04:00 98.7 F 74 18 123/67 95 02/16/18 01:12 68 18 99 02/16/18 00:00 98.3 F 75 18 124/78 95 Weight Weight 139 lb 4.8 oz Result Diagrams: 02/16/18 05:27 02/16/18 05:27 EKG Reviewed by me: Yes (lbbb) Phys Exam - Physical Examination Constitutional: NAD HEENT: PERRLA, moist MMs, sclera anicteric Neck: no JVD, supple Respiratory: no wheezing, no rhonchi reduced air entry at base Cardiovascular: RRR, no significant murmur, no rub Gastrointestinal: soft, non-tender, no distention, positive bowel sounds Musculoskeletal: no edema, pulses present Neurological: non-focal, normal sensation Lymphatic: no nodes Psychiatric: normal affect Skin: no rash, normal turgor Dx/Plan (1) Acute bronchitis Code(s): J20.9 - ACUTE BRONCHITIS, UNSPECIFIED Status: Acute Qualifiers: Bronchitis organism: unspecified organism Qualified Code(s): J20.9 - Acute bronchitis, unspecified (2) Acute on chronic systolic ACC/AHA stage C congestive heart failure Code(s): I50.23 - ACUTE ON CHRONIC SYSTOLIC (CONGESTIVE) HEART FAILURE Status : Acute (3) Demand ischemia of myocardium Code(s): I24.8 - OTHER FORMS OF ACUTE ISCHEMIC HEART DISEASE Status: Acute (4) Encephalopathy acute Code(s): G93.40 - ENCEPHALOPATHY, UNSPECIFIED Status: Acute Comment: seems like now baseline (5) Lactic acidosis Code(s): E87.2 - ACIDOSIS Status: Resolved (6) UTI (urinary tract infection) Status: Acute (7) Alzheimer's dementia Code(s): G30.9 - ALZHEIMER'S DISEASE, UNSPECIFIED Status: Chronic (8) Anxiety and depression Code(s): F41.9 - ANXIETY DISORDER, UNSPECIFIED; F32.9 - MAJOR DEPRESSIVE DISORDER, SINGLE EPISODE, UNSPECIFIED Status: Chronic (9) BPH (benign prostatic hyperplasia) Code(s): N40.0 - BENIGN PROSTATIC HYPERPLASIA WITHOUT LOWER URINRY TRACT SYMP Status: Chronic (10) CAD (coronary artery disease) Code(s): I25.10 - ATHSCL HEART DISEASE OF [place] CORONARY ARTERY W/O ANG PCTRS Status: Chronic (11) Dyslipidemia Code(s): E78.5 - HYPERLIPIDEMIA, UNSPECIFIED Status: Chronic (12) Hypertension Code(s): I10 - ESSENTIAL (PRIMARY) HYPERTENSION Status: Chronic (13) LBBB (left bundle branch block) Code(s): I44.7 - LEFT BUNDLE-BRANCH BLOCK, UNSPECIFIED Status: Chronic (14) Macrocytic anemia Code(s): D53.9 - NUTRITIONAL ANEMIA, UNSPECIFIED Status: Chronic (15) Pressure ulcer of coccygeal region, stage 3 Code(s): L89.153 - PRESSURE ULCER OF SACRAL REGION, STAGE 3 Status: Chronic Comment: present on admission (16) Protein-calorie malnutrition, moderate Code(s): E44.0 - MODERATE PROTEIN-CALORIE MALNUTRITION Status: Chronic (17) Severe mitral regurgitation by prior echocardiogram Code(s): I34.0 - NONRHEUMATIC MITRAL (VALVE) INSUFFICIENCY Status: Chronic (18) Severe tricuspid regurgitation by prior echocardiogram Code(s): I07.1 - RHEUMATIC TRICUSPID INSUFFICIENCY Status: Chronic - Plan cont current plan of care, continue antibiotics * continue lasix * continue current antibiotics * medication reviewed as below * symptomatic treatment * continue respiratory therapy. * follow culture Review of Systems - Review of Systems Constitutional: negative: fever, chills, sweats, weakness, malaise, other Eyes: negative: Pain, Vision Change, Conjunctivae Inflammation, Eyelid Inflammation, Redness, Other ENT: negative: Ear Pain, Ear Discharge, Nose Pain, Nose Discharge, Nose Congestion, Mouth Pain, Mouth Swelling, Throat Pain, Throat Swelling, Other Respiratory: Shortness of Breath. negative: Cough, Dry, Hemoptysis, SOB with Excertion, Pleuritic Pain, Sputum, Wheezing Cardiovascular: negative: chest pain, palpitations, orthopnea, paroxysmal nocturnal dyspnea, edema, light headedness, other Gastrointestinal: negative: Nausea, Vomiting, Abdominal Pain, Diarrhea, Constipation, Melena, Hematochezia, Other Genitourinary: negative: Dysuria, Frequency, Incontinence, Hematuria, Retention , Other Musculoskeletal: negative: Neck Pain, Shoulder Pain, Arm Pain, Back Pain, Hand Pain, Leg Pain, Foot Pain, Other Other: not reliable due to cognitive deficit - Medications/Allergies Allergies/Adverse Reactions: Allergies Allergy/AdvReac Type Severity Reaction Status Date / Time No Known Allergies Allergy Verified 02/15/18 16:06 Medications: Current Medications Acetaminophen (Tylenol) 650 mg PO Q4H PRN PRN Reason: Headache/Fever/Mild Pain (1-3) Hydrocodone Bitart/Acetaminophen ([place] 5/325) 1 tab PO Q4H PRN PRN Reason: Moderate Pain (4-6) Albuterol/Ipratropium (Duoneb) 3 ml NEB [id number] PRN PRN Reason: SOB &/or Wheezing Albuterol/Ipratropium (Duoneb) 3 ml NEB [id number] [facility] Last Admin: 02/16/18 07:34 Dose: 3 ml Aspirin (Aspirin Chewable) 81 mg PO DAILY [facility] Last Admin: 02/15/18 11:58 Dose: 81 mg Atorvastatin Calcium (Lipitor) 10 mg PO HS [facility] Last Admin: 02/15/18 21:23 Dose: 10 mg Bisacodyl (Dulcolax) 10 mg PO DAILYPRN PRN PRN Reason: Constipation Bisacodyl (Dulcolax) 10 mg [place] DAILYPRN PRN PRN Reason: Constipation Calcium Carbonate (Tums) 1,000 mg PO Q4H PRN PRN Reason: Heartburn or Indigestion Carvedilol (Coreg) 3.125 mg PO BID-[facility] Last Admin: 02/15/18 16:16 Dose: 3.125 mg Cyanocobalamin (Vitamin B-12) 1,000 mcg PO DAILY [facility] Doxazosin Mesylate (Cardura) 2 mg PO DAILY [facility] Last Admin: 02/15/18 11:54 Dose: 2 mg Enoxaparin Sodium (Lovenox) 40 mg SC 0900 [facility] Last Admin: 02/15/18 11:58 Dose: 40 mg Escitalopram Oxalate (Lexapro) 20 mg PO DAILY [facility] Last Admin: 02/15/18 11:54 Dose: 20 mg Famotidine (Pepcid) 20 mg PO BID [facility] Last Admin: 02/15/18 21:22 Dose: 20 mg Folic Acid (Folvite) 1 mg PO DAILY [facility] Furosemide (Lasix) 20 mg SLOW IVP 0600,1400 [facility] Last Admin: 02/16/18 05:45 Dose: 20 mg Guaifenesin (Mucinex) 600 mg PO Q12HR [facility] Last Admin: 02/15/18 21:23 Dose: 600 mg Ceftriaxone Sodium 1 gm/ (Sodium Chloride) 100 mls @ 200 mls/hr IVPB 1000 [facility] Last Admin: 02/15/18 11:58 Dose: 100 mls Levofloxacin 750 mg/ Device 150 mls @ 100 mls/hr IVPB 2100 [facility] Last Admin: 02/15/18 21:23 Dose: 150 mls Iron/Minerals/Multivitamins (Theragran M) 1 tab PO DAILY [facility] Last Admin: 02/15/18 16:10 Dose: Not Given Lisinopril (Zestril) 2.5 mg PO DAILY [facility] Last Admin: 02/15/18 11:54 Dose: 2.5 mg Loperamide HCl (Imodium) 2 mg PO PRN PRN PRN Reason: Diarrhea/Loose Stools Methylprednisolone Sodium Succinate (Solu-Medrol) 40 mg IVP Q8HR [facility] Last Admin: 02/16/18 05:45 Dose: 40 mg Mometasone Furoate/Formoterol Fumar (Dulera 200 Mcg/5 Mcg Inhaler) 2 puff INH BID-RT [facility] Last Admin: 02/16/18 07:37 Dose: 2 puff Ondansetron HCl (Zofran Odt) 4 mg PO Q6H PRN PRN Reason: Nausea/Vomiting Ondansetron HCl (Zofran) 4 mg IVP Q6H PRN PRN Reason: Nausea/Vomiting Polyethylene Glycol (Miralax) 17 gm PO DAILY [facility] Last Admin: 02/15/18 11:55 Dose: 17 gm Polyethylene Glycol (Miralax) 17 gm PO DAILYPRN PRN PRN Reason: Constipation Potassium Chloride (Klor-Con 10) 10 meq PO QAM-[facility] Saccharomyces Boulardii (Florastor) 250 mg PO DAILY [facility] Last Admin: 02/15/18 11:54 Dose: 250 mg Senna/Docusate Sodium (Senokot S) 2 tab PO BID PRN PRN Reason: Constipation
[2018-02-16] MEDS: cefTRIAXone\\ROCEPHIN 1 GM in Sodium Chloride 0.9% 100 ML IVPB SCH (10:48)
[2018-02-16] MEDS: Enoxaparin Sodium 40 MG/0.4 ML SYRINGE SC SCH (10:56)
[2018-02-16] MEDS: Carvedilol 3.125 MG TAB PO SCH ×2 (10:56→18:34)
[2018-02-16] MEDS: Escitalopram Oxalate 20 mg Tablet PO SCH (10:56)
[2018-02-16] MEDS: Potassium Chloride 10 MEQ TAB PO SCH (10:57)
[2018-02-16] MEDS: guaiFENesin ER 600 MG TAB PO SCH ×2 (10:57→21:21)
[2018-02-16] MEDS: Doxazosin 2 MG TAB PO SCH (10:57)
[2018-02-16] MEDS: Saccharomyces boulardii 250 MG CAP PO SCH (10:57)
[2018-02-16] MEDS: Lisinopril 2.5 MG TAB PO SCH (10:57)
--- NOTE | 2018-02-16 10:57 | PQF ---
TAYLOR DEGROOT, KAITLYN SILVER MD [id number] [facility] [id number] CLINICAL DOCUMENTATION IMPROVEMENT CLARIFICATION FORM: ICD-10 Updated PLEASE DO AN ADDENDUM TO THE PROGRESS NOTE WITH ANY DOCUMENTATION UPDATES OR ADDITIONS AND CARRY THROUGH TO DC SUMMARY. THANK YOU. DATE: 02-16-18 ATTN: DR. MENEZES Please exercise your independent, professional judgment in responding to the clarification form. Clinical indicators are provided on the bottom of this form for your review Please check appropriate box(s): [ x ] Encephalopathy: [ ] Metabolic [ x ] Septic [ ] Unspecified [ ] in the setting of underlying dementia [ ] Other (please specify) [ ] Transient Alteration of Awareness [ ] Other diagnosis [ ] Unable to determine For continuity of documentation, please document condition throughout progress notes and discharge summary. Thank You. CLINICAL INDICATORS - SIGNS / SYMPTOMS / LABS ED: SEPSIS; DYSPNEA; FEVER; UTI; WHEEZING SEPSIS ALERT P 62 - 100 RR 20-28 T 99.0 ORAL O2 SAT 100% ON RA A&O X 2 AUDIBLE WHEEZING - W/ SOB X 2 DAYS PT VS TMAX 101.3; BS 298; RR 22-35 H&P: ACUTE ON CHRONIC ENCEPHALOPATHY - MOST LIKELY R/T UNDERLYING UTI AND BRONCHITIS TEMP AT RI 103 DX: ACUTE BRONCHITIS; UTI; ACUTE ON CHRONIC SYSTOLIC CHF RISK FACTORS H&P: * [place] RESIDENT W/ ALZHEIMER'S DEMENTIA * ACUTE ON CHRONIC ENCEPHALOPATHY - MOST LIKELY R/T UNDERLYING UTI AND BRONCHITIS * DX: ACUTE BRONCHITIS; UTI; ACUTE ON CHRONIC SYSTOLIC CHF TREATMENTS: CPOE: * CARDIAC MONITORING * 02-14 BLD CULTURES / URINE CULTURE * NASAL SWAB - INFLUENZA MAR: VANCOMYCIN IV 02-14 ZOSYN IV 02-14 ROCEPHIN IV 02-15 LEVAQUIN IV 02-14 / 02-15 ALBUTEROL NEB 02-15 NS IVF 02-14 THANK YOU, MELISSA (This form is maintained as a part of the permanent medical record) 2014 [employer] All Rights Reserved Melissa De, RN, BS [email or web address] Cell [facility]
[2018-02-16] MEDS: Polyethylene Glycol 3350 17 GM Packet PO SCH (10:58)
[2018-02-16] MEDS: Folic Acid 1 MG TAB PO SCH (10:58)
[2018-02-16] MEDS: Famotidine 20 MG TAB PO SCH ×2 (10:58→21:20)
[2018-02-16] MEDS: Cyanocobalamin (Vitamin B-12) 1,000 MCG TAB PO SCH (10:58)
[2018-02-16] MEDS: Multivitamin W/ Minerals 1 TAB PO SCH (10:58)
--- NOTE | 2018-02-16 11:03 | PQF ---
TAYLOR DEGROOT SALIM NOORJIBHAI MD [id number] [facility]269 [id number] CLINICAL DOCUMENTATION IMPROVEMENT CLARIFICATION FORM: ICD-10 Updated PLEASE DO AN ADDENDUM TO THE PROGRESS NOTE WITH ANY DOCUMENTATION UPDATES OR ADDITIONS AND CARRY THROUGH TO DC SUMMARY. THANK YOU. DATE: 02-14-18 ATTN: DR. MENEZES Please exercise your independent, professional judgment in responding to the clarification form. Clinical indicators are provided on the bottom of this form for your review Please check appropriate box(es): [ x ] Sepsis due to Acute bronchitis and UTI [ ] Severe sepsis with acute organ dysfunction of Encephalopathy and Demand Ischemia due to Acute Bronchitis and UTI [ ] Localized infection without sepsis [ ] Other diagnosis [ ] Unable to determine In addition, please specify: Present on Admission (POA): [x ] Yes [ ] No [ ] Unable to determine For continuity of documentation, please document condition throughout progress notes and discharge summary. Thank You. CLINICAL INDICATORS - SIGNS / SYMPTOMS / LABS ED: SEPSIS; DYSPNEA; FEVER; UTI; WHEEZING SEPSIS ALERT P 62 - 100 RR 20-28 T 99.0 ORAL O2 SAT 100% ON RA A&O X 2 AUDIBLE WHEEZING - W/ SOB X 2 DAYS PT VS TMAX 101.3; BS 298; RR 22-35 H&P: ACUTE ON CHRONIC ENCEPHALOPATHY - MOST LIKELY R/T UNDERLYING UTI AND BRONCHITIS ELEVATED TROPONIN LIKELY D/T DEMAND ISCHEMIA TEMP AT [place] 103 DX: ACUTE BRONCHITIS; UTI; ACUTE ON CHRONIC SYSTOLIC CHF LABS: 02-14 LACTIC ACID 2.7 RISK FACTORS H&P: * [place] RESIDENT W/ ALZHEIMER'S DEMENTIA * ACUTE ON CHRONIC ENCEPHALOPATHY - MOST LIKELY R/T UNDERLYING UTI AND BRONCHITIS * DX: ACUTE BRONCHITIS; UTI; ACUTE ON CHRONIC SYSTOLIC CHF TREATMENTS: CPOE: * CARDIAC MONITORING * 02-14 BLD CULTURES / URINE CULTURE * NASAL SWAB - INFLUENZA MAR: VANCOMYCIN IV 02-14 ZOSYN IV 02-14 ROCEPHIN IV 02-15 LEVAQUIN IV 02-14 / 02-15 ALBUTEROL NEB 02-15 NS IVF 02-14 THANK YOU, MELISSA (This form is maintained as a part of the permanent medical record) 2014 [employer]. All Rights Reserved Melissa De RN, BS [email or web address] [facility]
[2018-02-16] MEDS: Atorvastatin Calcium 10 MG TAB PO SCH (21:20)
[2018-02-17] MEDS: Furosemide 20 MG/2 ML VIAL SLOW IVP SCH ×2 (05:56→14:22)
[2018-02-17] MEDS: Mometasone/Formoterol 120 PUFF INHALER INH SCH ×2 (06:53→18:56)
--- NOTE | 2018-02-17 09:16 | PDOC.PN ---
- Subjective Encounter Start Date: 02/17/18 Encounter Start Time: 07:50 Patient seen and examined. No new complaints. No overnight events - Objective Resuscitation Status - Order Detail: 02/15/18 08:47 Resuscitation Status Routine Resuscitation Status: FULL: Full Resuscitation MAR Reviewed: Yes Vital Signs & Weight: Vital Signs (12 hours) Temp Pulse Resp BP Pulse Ox 02/17/18 06:52 81 18 100 02/17/18 04:00 97.8 F 77 16 110/67 97 02/17/18 00:15 84 100 Weight Weight 139 lb 4.8 oz Result Diagrams: 02/16/18 05:27 02/16/18 05:27 EKG Reviewed by me: Yes (lbbb) Phys Exam - Physical Examination Constitutional: NAD HEENT: PERRLA, moist MMs, sclera anicteric Neck: no JVD, supple Respiratory: no wheezing, no rales, no rhonchi Cardiovascular: RRR, no significant murmur, no rub Gastrointestinal: soft, non-tender, no distention, positive bowel sounds Musculoskeletal: no edema, pulses present Neurological: non-focal, normal sensation Lymphatic: no nodes Psychiatric: normal affect Skin: no rash, normal turgor Dx/Plan (1) Acute bronchitis Code(s): J20.9 - ACUTE BRONCHITIS, UNSPECIFIED Status: Acute Qualifiers: Bronchitis organism: unspecified organism Qualified Code(s): J20.9 - Acute bronchitis, unspecified (2) Acute on chronic systolic ACC/AHA stage C congestive heart failure Code(s): I50.23 - ACUTE ON CHRONIC SYSTOLIC (CONGESTIVE) HEART FAILURE Status : Acute (3) Demand ischemia of myocardium Code(s): I24.8 - OTHER FORMS OF ACUTE ISCHEMIC HEART DISEASE Status: Acute (4) Encephalopathy acute Code(s): G93.40 - ENCEPHALOPATHY, UNSPECIFIED Status: Acute Comment: seems like now baseline (5) Lactic acidosis Code(s): E87.2 - ACIDOSIS Status: Resolved (6) UTI (urinary tract infection) Status: Acute (7) Alzheimer's dementia Code(s): G30.9 - ALZHEIMER'S DISEASE, UNSPECIFIED Status: Chronic (8) Anxiety and depression Code(s): F41.9 - ANXIETY DISORDER, UNSPECIFIED; F32.9 - MAJOR DEPRESSIVE DISORDER, SINGLE EPISODE, UNSPECIFIED Status: Chronic (9) BPH (benign prostatic hyperplasia) Code(s): N40.0 - BENIGN PROSTATIC HYPERPLASIA WITHOUT LOWER URINRY TRACT SYMP Status: Chronic (10) CAD (coronary artery disease) Code(s): I25.10 - ATHSCL HEART DISEASE OF [place] CORONARY ARTERY W/O ANG PCTRS Status: Chronic (11) Dyslipidemia Code(s): E78.5 - HYPERLIPIDEMIA, UNSPECIFIED Status: Chronic (12) Hypertension Code(s): I10 - ESSENTIAL (PRIMARY) HYPERTENSION Status: Chronic (13) LBBB (left bundle branch block) Code(s): I44.7 - LEFT BUNDLE-BRANCH BLOCK, UNSPECIFIED Status: Chronic (14) Macrocytic anemia Code(s): D53.9 - NUTRITIONAL ANEMIA, UNSPECIFIED Status: Chronic (15) Pressure ulcer of coccygeal region, stage 3 Code(s): L89.153 - PRESSURE ULCER OF SACRAL REGION, STAGE 3 Status: Chronic Comment: present on admission (16) Protein-calorie malnutrition, moderate Code(s): E44.0 - MODERATE PROTEIN-CALORIE MALNUTRITION Status: Chronic (17) Severe mitral regurgitation by prior echocardiogram Code(s): I34.0 - NONRHEUMATIC MITRAL (VALVE) INSUFFICIENCY Status: Chronic (18) Severe tricuspid regurgitation by prior echocardiogram Code(s): I07.1 - RHEUMATIC TRICUSPID INSUFFICIENCY Status: Chronic - Plan cont current plan of care, continue antibiotics, PT/OT, respiratory therapy * reduce solumedrol 20 mg iv q 8 hourly * continue lasix today. * DC tele * transfer to medical * expecting discharge in 24-48 hours * medication reviewed as below * symptomatic treatment Review of Systems - Review of Systems ENT: negative: Ear Pain, Ear Discharge, Nose Pain, Nose Discharge, Nose Congestion, Mouth Pain, Mouth Swelling, Throat Pain, Throat Swelling, Other Respiratory: negative: Cough, Dry, Shortness of Breath, Hemoptysis, SOB with Excertion, Pleuritic Pain, Sputum, Wheezing Cardiovascular: negative: chest pain, palpitations, orthopnea, paroxysmal nocturnal dyspnea, edema, light headedness, other Gastrointestinal: negative: Nausea, Vomiting, Abdominal Pain, Diarrhea, Constipation, Melena, Hematochezia, Other Genitourinary: negative: Dysuria, Frequency, Incontinence, Hematuria, Retention , Other Musculoskeletal: negative: Neck Pain, Shoulder Pain, Arm Pain, Back Pain, Hand Pain, Leg Pain, Foot Pain, Other Skin: negative: Rash, Lesions, Seth, Bruising, Other - Medications/Allergies Allergies/Adverse Reactions: Allergies Allergy/AdvReac Type Severity Reaction Status Date / Time No Known Allergies Allergy Verified 02/15/18 16:06 Medications: Current Medications Acetaminophen (Tylenol) 650 mg PO Q4H PRN PRN Reason: Headache/Fever/Mild Pain (1-3) Hydrocodone Bitart/Acetaminophen ([place] 5/325) 1 tab PO Q4H PRN PRN Reason: Moderate Pain (4-6) Albuterol/Ipratropium (Duoneb) 3 ml NEB [id number] PRN PRN Reason: SOB &/or Wheezing Albuterol/Ipratropium (Duoneb) 3 ml NEB [id number] Last Admin: 02/17/18 06:52 Dose: 3 ml Aspirin (Aspirin Chewable) 81 mg PO DAILY [facility] Last Admin: 02/16/18 10:57 Dose: 81 mg Atorvastatin Calcium (Lipitor) 10 mg PO HS [facility] Last Admin: 02/16/18 21:20 Dose: 10 mg Bisacodyl (Dulcolax) 10 mg PO DAILYPRN PRN PRN Reason: Constipation Bisacodyl (Dulcolax) 10 mg [place] DAILYPRN PRN PRN Reason: Constipation Calcium Carbonate (Tums) 1,000 mg PO Q4H PRN PRN Reason: Heartburn or Indigestion Carvedilol (Coreg) 3.125 mg PO BID-[facility] Last Admin: 02/16/18 18:34 Dose: 3.125 mg Cyanocobalamin (Vitamin B-12) 1,000 mcg PO DAILY [facility] Last Admin: 02/16/18 10:58 Dose: 1,000 mcg Doxazosin Mesylate (Cardura) 2 mg PO DAILY [facility] Last Admin: 02/16/18 10:57 Dose: 2 mg Enoxaparin Sodium (Lovenox) 40 mg SC 0900 [facility] Last Admin: 02/16/18 10:56 Dose: 40 mg Escitalopram Oxalate (Lexapro) 20 mg PO DAILY [facility] Last Admin: 02/16/18 10:56 Dose: 20 mg Famotidine (Pepcid) 20 mg PO BID [facility] Last Admin: 02/16/18 21:20 Dose: 20 mg Folic Acid (Folvite) 1 mg PO DAILY [facility] Last Admin: 02/16/18 10:58 Dose: 1 mg Furosemide (Lasix) 20 mg SLOW IVP 0600,1400 [facility] Last Admin: 02/17/18 05:56 Dose: 20 mg Guaifenesin (Mucinex) 600 mg PO Q12HR [facility] Last Admin: 02/16/18 21:21 Dose: 600 mg Ceftriaxone Sodium 1 gm/ (Sodium Chloride) 100 mls @ 200 mls/hr IVPB 1000 [facility] Last Admin: 02/16/18 10:48 Dose: 100 mls Levofloxacin 750 mg/ Device 150 mls @ 100 mls/hr IVPB 2100 [facility] Last Admin: 02/16/18 21:28 Dose: 150 mls Iron/Minerals/Multivitamins (Theragran M) 1 tab PO DAILY [facility] Last Admin: 02/16/18 10:58 Dose: 1 tab Lisinopril (Zestril) 2.5 mg PO DAILY [facility] Last Admin: 02/16/18 10:57 Dose: 2.5 mg Loperamide HCl (Imodium) 2 mg PO PRN PRN PRN Reason: Diarrhea/Loose Stools Methylprednisolone Sodium Succinate (Solu-Medrol) 20 mg IVP Q8HR [facility] Mometasone Furoate/Formoterol Fumar (Dulera 200 Mcg/5 Mcg Inhaler) 2 puff INH BID-RT [facility] Last Admin: 02/17/18 06:53 Dose: 2 puff Ondansetron HCl (Zofran Odt) 4 mg PO Q6H PRN PRN Reason: Nausea/Vomiting Ondansetron HCl (Zofran) 4 mg IVP Q6H PRN PRN Reason: Nausea/Vomiting Polyethylene Glycol (Miralax) 17 gm PO DAILY [facility] Last Admin: 02/16/18 10:58 Dose: 17 gm Polyethylene Glycol (Miralax) 17 gm PO DAILYPRN PRN PRN Reason: Constipation Potassium Chloride (Klor-Con 10) 10 meq PO QAM-[facility] Last Admin: 02/16/18 10:57 Dose: 10 meq Saccharomyces Boulardii (Florastor) 250 mg PO DAILY [facility] Last Admin: 02/16/18 10:57 Dose: 250 mg Senna/Docusate Sodium (Senokot S) 2 tab PO BID PRN PRN Reason: Constipation Sodium Chloride (Flush - Normal Saline) 10 ml IVF Q12HR [facility] Sodium Chloride (Flush - Normal Saline) 10 ml IVF PRN PRN PRN Reason: Saline Flush
[2018-02-17] MEDS: Polyethylene Glycol 3350 17 GM Packet PO SCH (09:31)
[2018-02-17] MEDS: Potassium Chloride 10 MEQ TAB PO SCH (09:32)
[2018-02-17] MEDS: Carvedilol 3.125 MG TAB PO SCH ×2 (09:32→16:53)
[2018-02-17] MEDS: Cyanocobalamin (Vitamin B-12) 1,000 MCG TAB PO SCH (09:33)
[2018-02-17] MEDS: Escitalopram Oxalate 20 mg Tablet PO SCH (09:33)
[2018-02-17] MEDS: Famotidine 20 MG TAB PO SCH ×2 (09:33→21:00)
[2018-02-17] MEDS: Folic Acid 1 MG TAB PO SCH (09:33)
[2018-02-17] MEDS: Doxazosin 2 MG TAB PO SCH (09:33)
[2018-02-17] MEDS: Enoxaparin Sodium 40 MG/0.4 ML SYRINGE SC SCH (09:33)
[2018-02-17] MEDS: guaiFENesin ER 600 MG TAB PO SCH ×2 (09:34→22:31)
[2018-02-17] MEDS: Saccharomyces boulardii 250 MG CAP PO SCH (09:34)
[2018-02-17] MEDS: Multivitamin W/ Minerals 1 TAB PO SCH (09:34)
[2018-02-17] MEDS: cefTRIAXone\\ROCEPHIN 1 GM in Sodium Chloride 0.9% 100 ML IVPB SCH (09:34)
[2018-02-17] MEDS: Lisinopril 2.5 MG TAB PO SCH (09:34)
[2018-02-17] MEDS: Atorvastatin Calcium 10 MG TAB PO SCH (22:31)
[2018-02-18] MEDS: Furosemide 20 MG/2 ML VIAL SLOW IVP SCH (06:43)
[2018-02-18] MEDS: Mometasone/Formoterol 120 PUFF INHALER INH SCH ×2 (07:15→18:07)
[2018-02-18] MEDS: Polyethylene Glycol 3350 17 GM Packet PO SCH (07:23)
[2018-02-18] MEDS: Folic Acid 1 MG TAB PO SCH (08:27)
[2018-02-18] MEDS: Saccharomyces boulardii 250 MG CAP PO SCH (08:27)
[2018-02-18] MEDS: Famotidine 20 MG TAB PO SCH ×2 (08:27→21:14)
[2018-02-18] MEDS: Lisinopril 2.5 MG TAB PO SCH (08:27)
[2018-02-18] MEDS: Carvedilol 3.125 MG TAB PO SCH ×2 (08:27→15:18)
[2018-02-18] MEDS: Escitalopram Oxalate 20 mg Tablet PO SCH (08:28)
[2018-02-18] MEDS: Cyanocobalamin (Vitamin B-12) 1,000 MCG TAB PO SCH (08:28)
[2018-02-18] MEDS: guaiFENesin ER 600 MG TAB PO SCH ×2 (08:28→21:15)
[2018-02-18] MEDS: Potassium Chloride 10 MEQ TAB PO SCH (08:28)
[2018-02-18] MEDS: Multivitamin W/ Minerals 1 TAB PO SCH (08:28)
[2018-02-18] MEDS: Enoxaparin Sodium 40 MG/0.4 ML SYRINGE SC SCH (08:29)
[2018-02-18] MEDS: cefTRIAXone\\ROCEPHIN 1 GM in Sodium Chloride 0.9% 100 ML IVPB SCH (08:37)
--- NOTE | 2018-02-18 09:26 | PDOC.PN ---
- Subjective Encounter Start Date: 02/18/18 Encounter Start Time: 08:10 Patient seen and examined. No new complaints. No overnight events - Objective Resuscitation Status - Order Detail: 02/15/18 08:47 Resuscitation Status Routine Resuscitation Status: FULL: Full Resuscitation MAR Reviewed: Yes Vital Signs & Weight: Vital Signs (12 hours) Temp Pulse Resp BP BP Pulse Ox 02/18/18 08:30 98.2 F 110 H 16 118/79 100 02/18/18 07:15 98 100 02/18/18 07:13 100 02/18/18 07:11 98 18 100 02/18/18 04:00 99.0 F 90 20 129/70 95 02/18/18 00:32 16 02/18/18 00:00 98.4 F 85 18 131/67 96 Weight Weight 139 lb 4.8 oz I&O: 02/17/18 02/18/18 02/19/18 06:59 06:59 06:59 Intake Total 1030 Balance 1030 Result Diagrams: 02/16/18 05:27 02/16/18 05:27 Phys Exam - Physical Examination Constitutional: NAD HEENT: PERRLA, moist MMs, sclera anicteric Neck: no JVD, supple Respiratory: no wheezing, no rales, no rhonchi Cardiovascular: RRR, no significant murmur, no rub Gastrointestinal: soft, non-tender, no distention, positive bowel sounds Musculoskeletal: no edema, pulses present Neurological: non-focal, normal sensation Lymphatic: no nodes Psychiatric: normal affect Skin: no rash, normal turgor Dx/Plan (1) Acute bronchitis Code(s): J20.9 - ACUTE BRONCHITIS, UNSPECIFIED Status: Acute Qualifiers: Bronchitis organism: unspecified organism Qualified Code(s): J20.9 - Acute bronchitis, unspecified (2) Acute on chronic systolic ACC/AHA stage C congestive heart failure Code(s): I50.23 - ACUTE ON CHRONIC SYSTOLIC (CONGESTIVE) HEART FAILURE Status : Acute (3) Demand ischemia of myocardium Code(s): I24.8 - OTHER FORMS OF ACUTE ISCHEMIC HEART DISEASE Status: Acute (4) Encephalopathy acute Code(s): G93.40 - ENCEPHALOPATHY, UNSPECIFIED Status: Acute Comment: seems like now baseline (5) Lactic acidosis Code(s): E87.2 - ACIDOSIS Status: Resolved (6) UTI (urinary tract infection) Status: Acute (7) Alzheimer's dementia Code(s): G30.9 - ALZHEIMER'S DISEASE, UNSPECIFIED Status: Chronic (8) Anxiety and depression Code(s): F41.9 - ANXIETY DISORDER, UNSPECIFIED; F32.9 - MAJOR DEPRESSIVE DISORDER, SINGLE EPISODE, UNSPECIFIED Status: Chronic (9) BPH (benign prostatic hyperplasia) Code(s): N40.0 - BENIGN PROSTATIC HYPERPLASIA WITHOUT LOWER URINRY TRACT SYMP Status: Chronic (10) CAD (coronary artery disease) Code(s): I25.10 - ATHSCL HEART DISEASE OF [place] CORONARY ARTERY W/O ANG PCTRS Status: Chronic (11) Dyslipidemia Code(s): E78.5 - HYPERLIPIDEMIA, UNSPECIFIED Status: Chronic (12) Hypertension Code(s): I10 - ESSENTIAL (PRIMARY) HYPERTENSION Status: Chronic (13) LBBB (left bundle branch block) Code(s): I44.7 - LEFT BUNDLE-BRANCH BLOCK, UNSPECIFIED Status: Chronic (14) Macrocytic anemia Code(s): D53.9 - NUTRITIONAL ANEMIA, UNSPECIFIED Status: Chronic (15) Pressure ulcer of coccygeal region, stage 3 Code(s): L89.153 - PRESSURE ULCER OF [place], STAGE 3 Status: Chronic Comment: present on admission (16) Protein-calorie malnutrition, moderate Code(s): E44.0 - MODERATE PROTEIN-CALORIE MALNUTRITION Status: Chronic (17) Severe mitral regurgitation by prior echocardiogram Code(s): I34.0 - NONRHEUMATIC MITRAL (VALVE) INSUFFICIENCY Status: Chronic (18) Severe tricuspid regurgitation by prior echocardiogram Code(s): I07.1 - RHEUMATIC TRICUSPID INSUFFICIENCY Status: Chronic - Plan cont current plan of care, continue antibiotics, respiratory therapy * reduce solumedrol * DC rocephin * change lasix PO * medication reviewed as below * symptomatic treatment. Review of Systems - Review of Systems ENT: negative: Ear Pain, Ear Discharge, Nose Pain, Nose Discharge, Nose Congestion, Mouth Pain, Mouth Swelling, Throat Pain, Throat Swelling, Other Respiratory: negative: Cough, Dry, Shortness of Breath, Hemoptysis, SOB with Excertion, Pleuritic Pain, Sputum, Wheezing Cardiovascular: negative: chest pain, palpitations, orthopnea, paroxysmal nocturnal dyspnea, edema, light headedness, other Gastrointestinal: negative: Nausea, Vomiting, Abdominal Pain, Diarrhea, Constipation, Melena, Hematochezia, Other Genitourinary: negative: Dysuria, Frequency, Incontinence, Hematuria, Retention , Other Musculoskeletal: negative: Neck Pain, Shoulder Pain, Arm Pain, Back Pain, Hand Pain, Leg Pain, Foot Pain, Other Skin: negative: Rash, Lesions, Seth, Bruising, Other - Medications/Allergies Allergies/Adverse Reactions: Allergies Allergy/AdvReac Type Severity Reaction Status Date / Time No Known Allergies Allergy Verified 02/15/18 16:06 Medications: Current Medications Acetaminophen (Tylenol) 650 mg PO Q4H PRN PRN Reason: Headache/Fever/Mild Pain (1-3) Hydrocodone Bitart/Acetaminophen (Jackson 5/325) 1 tab PO Q4H PRN PRN Reason: Moderate Pain (4-6) Albuterol/Ipratropium (Duoneb) 3 ml NEB [id number] PRN PRN Reason: SOB &/or Wheezing Albuterol/Ipratropium (Duoneb) 3 ml NEB [id number] [facility] Last Admin: 02/18/18 07:11 Dose: 3 ml Aspirin (Aspirin Chewable) 81 mg PO DAILY [facility] Last Admin: 02/18/18 08:26 Dose: 81 mg Atorvastatin Calcium (Lipitor) 10 mg PO HS [facility] Last Admin: 02/17/18 22:31 Dose: 10 mg Bisacodyl (Dulcolax) 10 mg PO DAILYPRN PRN PRN Reason: Constipation Bisacodyl (Dulcolax) 10 mg OR DAILYPRN PRN PRN Reason: Constipation Calcium Carbonate (Tums) 1,000 mg PO Q4H PRN PRN Reason: Heartburn or Indigestion Carvedilol (Coreg) 3.125 mg PO BID-[facility] Last Admin: 02/18/18 08:27 Dose: 3.125 mg Cyanocobalamin (Vitamin B-12) 1,000 mcg PO DAILY [facility] Last Admin: 02/18/18 08:28 Dose: 1,000 mcg Doxazosin Mesylate (Cardura) 2 mg PO DAILY [facility] Last Admin: 02/17/18 09:33 Dose: Not Given Enoxaparin Sodium (Lovenox) 40 mg SC 0900 [facility] Last Admin: 02/18/18 08:29 Dose: 40 mg Escitalopram Oxalate (Lexapro) 20 mg PO DAILY [facility] Last Admin: 02/18/18 08:28 Dose: 20 mg Famotidine (Pepcid) 20 mg PO BID [facility] Last Admin: 02/18/18 08:27 Dose: 20 mg Folic Acid (Folvite) 1 mg PO DAILY [facility] Last Admin: 02/18/18 08:27 Dose: 1 mg Furosemide (Lasix) 20 mg SLOW IVP 0600,1400 [facility] Last Admin: 02/18/18 06:43 Dose: 20 mg Guaifenesin (Mucinex) 600 mg PO Q12HR [facility] Last Admin: 02/18/18 08:28 Dose: 600 mg Ceftriaxone Sodium 1 gm/ (Sodium Chloride) 100 mls @ 200 mls/hr IVPB 1000 [facility] Last Admin: 02/18/18 08:37 Dose: 100 mls Levofloxacin 750 mg/ Device 150 mls @ 100 mls/hr IVPB 2100 [facility] Last Admin: 02/17/18 22:31 Dose: 150 mls Iron/Minerals/Multivitamins (Theragran M) 1 tab PO DAILY [facility] Last Admin: 02/18/18 08:28 Dose: 1 tab Lisinopril (Zestril) 2.5 mg PO DAILY [facility] Last Admin: 02/18/18 08:27 Dose: 2.5 mg Loperamide HCl (Imodium) 2 mg PO PRN PRN PRN Reason: Diarrhea/Loose Stools Methylprednisolone Sodium Succinate (Solu-Medrol) 20 mg IVP Q8HR [facility] Last Admin: 02/18/18 06:43 Dose: 20 mg Mometasone Furoate/Formoterol Fumar (Dulera 200 Mcg/5 Mcg Inhaler) 2 puff INH BID-RT [facility] Last Admin: 02/18/18 07:15 Dose: 2 puff Ondansetron HCl (Zofran Odt) 4 mg PO Q6H PRN PRN Reason: Nausea/Vomiting Ondansetron HCl (Zofran) 4 mg IVP Q6H PRN PRN Reason: Nausea/Vomiting Polyethylene Glycol (Miralax) 17 gm PO DAILY [facility] Last Admin: 02/18/18 07:23 Dose: Not Given Polyethylene Glycol (Miralax) 17 gm PO DAILYPRN PRN PRN Reason: Constipation Potassium Chloride (Klor-Con 10) 10 meq PO QAM-WM [facility] Last Admin: 02/18/18 08:28 Dose: 10 meq Saccharomyces Boulardii (Florastor) 250 mg PO DAILY [facility] Last Admin: 02/18/18 08:27 Dose: 250 mg Senna/Docusate Sodium (Senokot S) 2 tab PO BID PRN PRN Reason: Constipation Sodium Chloride (Flush - Normal Saline) 10 ml IVF Q12HR [facility] Last Admin: 02/18/18 08:40 Dose: 10 ml Sodium Chloride (Flush - Normal Saline) 10 ml IVF PRN PRN PRN Reason: Saline Flush
[2018-02-18] MEDS: Furosemide 20 MG TAB PO SCH (13:11)
[2018-02-18] MEDS: Doxazosin 2 MG TAB PO SCH (15:25)
--- NOTE | 2018-02-18 18:24 | EKG ---
Test Reason : Blood Pressure : / mmHG Vent. Rate : 096 BPM Atrial Rate : 096 BPM P-R Int : 166 ms QRS Dur : 134 ms QT Int : 404 ms P-R-T Axes : 069 -49 093 degrees QTc Int : 510 ms Sinus rhythm with Fusion complexes Left axis deviation Non-specific intra-ventricular conduction block Nonspecific T wave abnormality Abnormal ECG Confirmed by ONDINA SANABRIA ([id number]), purchasing expeditor JACKELIN SIERRA ([id number] on 02/18/2018 6:23:26 PM Referred By: Confirmed By:ONDINA SANABRIA
[2018-02-18] MEDS: Atorvastatin Calcium 10 MG TAB PO SCH (21:14)
[2018-02-19] MEDS ORDERED: Haloperidol Lactate 5 MG/ML VIAL IM SCH (01:45)
[2018-02-19] MEDS: Mometasone/Formoterol 120 PUFF INHALER INH SCH (08:32)
[2018-02-19 08:33] VITALS: BP 129/73; TEMP 98.6
[2018-02-19] MEDS: Polyethylene Glycol 3350 17 GM Packet PO SCH (08:34)
[2018-02-19] MEDS: Multivitamin W/ Minerals 1 TAB PO SCH (08:34)
[2018-02-19] MEDS: Lisinopril 2.5 MG TAB PO SCH (08:35)
[2018-02-19] MEDS: Carvedilol 3.125 MG TAB PO SCH (08:35)
[2018-02-19] MEDS: Saccharomyces boulardii 250 MG CAP PO SCH (08:35)
[2018-02-19] MEDS: Famotidine 20 MG TAB PO SCH (08:36)
[2018-02-19] MEDS: guaiFENesin ER 600 MG TAB PO SCH (08:36)
[2018-02-19] MEDS: Cyanocobalamin (Vitamin B-12) 1,000 MCG TAB PO SCH (08:36)
[2018-02-19] MEDS: Furosemide 20 MG TAB PO SCH (08:36)
[2018-02-19] MEDS: Escitalopram Oxalate 20 mg Tablet PO SCH (08:37)
[2018-02-19] MEDS: Potassium Chloride 10 MEQ TAB PO SCH (08:40)
[2018-02-19] MEDS: Folic Acid 1 MG TAB PO SCH (08:40)
[2018-02-19] MEDS: Enoxaparin Sodium 40 MG/0.4 ML SYRINGE SC SCH (08:43)
[2018-02-19] MEDS: Doxazosin 2 MG TAB PO SCH (12:49)
--- NOTE | 2018-02-20 07:49 | DIS ---
DATE OF ADMISSION: 02/14/2018 DATE OF DISCHARGE: 02/19/2018 PRIMARY CARE PHYSICIAN: Sammi Barrow MD DISCHARGE DISPOSITION: [facility] home at [place]. PRIMARY DISCHARGE DIAGNOSES: 1. Acute bronchitis. 2. Kxiuo-[id number]-npgbqtl systolic and diastolic heart failure with [employer] stage C. 3. Demand ischemia of myocardium. 4. Acute encephalopathy, resolved. 5. Urinary tract infection. 6. Lactic acidosis, resolved. SECONDARY DISCHARGE DIAGNOSES: 1. Severe tricuspid regurgitation. 2. Severe mitral regurgitation. 3. Protein-calorie malnutrition, moderate. 4. Pressure ulcer of coccygeal region. 5. Macrocytic anemia. 6. Chronic left bundle branch block. 7. Hypertension. 8. Dyslipidemia. 9. Coronary artery disease. 10. Benign enlargement of prostate. 11. Anxiety and depression. 12. Alzheimer's dementia. 13. Legal blindness. PRIMARY PROCEDURE/OPERATION: None. RADIOLOGICAL INVESTIGATION: Chest x-ray was unremarkable. Significant labs; WBC 4.8, hemoglobin 11.1, MCV 99.7, platelets 144. Sodium 136, potassium 4.2, BUN 18, creatinine 1.24, calcium 8.1, AST 27, ALT 14, alkaline phosphatase 67, albumin 3.0. CK-MB 1.2. Troponin 0.062. Lactic acid 2.1. Urinalysis suggestive of UTI. Blood culture negative. Urine culture negative. Influenza screen negative. DISCHARGE MEDICATIONS: 1. Tylenol 650 mg p.o. q.6 hours hourly p.r.n. 2. Aspirin 81 mg p.o. daily. 3. Cardura 2 mg p.o. at bedtime. 4. Lexapro 40 mg p.o. daily. 5. Lovastatin 40 mg p.o. at bedtime. 6. Milk of magnesia 30 mL p.o. b.i.d. p.r.n. 7. Multivitamin one tablet p.o. daily. 8. MiraLAX 17 g p.o. daily. 9. Potassium chloride 10 mEq p.o. daily. 10. Ventolin 2 puff inhalation q.6 hourly p.r.n. 11. Mucinex 600 mg twice daily for five days. 12. Vitamin B12 of 1000 mcg p.o. daily. 13. Coreg 3.125 mg p.o. b.i.d. 14. Pepcid 20 mg p.o. b.i.d. 15. Folic acid 1 mg p.o. daily. 16. Lasix 20 mg p.o. b.i.d. 17. Levaquin 500 mg p.o. daily for five days. 18. Lisinopril 2.5 mg p.o. daily. 19. Dulera two puffs inhalation b.i.d. 20. Prednisone 5 mg p.o. daily for five days. 21. Florastor 250 mg p.o. daily for five days. CONTRAINDICATION: None. CODE STATUS: Full code. INPATIENT RETIREMENT SALES CONSULTANT: None. ALLERGIES: NO KNOWN DRUG ALLERGIES. DISCHARGE PLAN: Posthospital, the patient is discharged to [facility]. Subsequently, the patient will follow up with Dr. Barrow in one week. HOSPITAL COURSE: An 82-year-old male, who was [facility] because he was having increasing shortness of breath and wheezing and he was having fever. We found him in acute bronchitis with cneun-hu-nxiihge systolic heart failure. He was also having UTI. We treated him with broad-spectrum antibiotic therapy. His lactic acidosis improved. He was given Lasix while in hospital and he was treated for acute bronchitis with empiric antibiotic therapy, deep breathing treatment, and Solu-Medrol with clinical improvement. Upon discharge, we changed to p.o. Levaquin for five more days and prednisone for five more days and rest of the medications he will continue as per previous. All cultures remained negative while in the hospital. He is hemodynamically stable. The patient is seen and examined at bedside today. REVIEW OF SYSTEMS: Reviewed with him and negative. PHYSICAL EXAMINATION: VITAL SIGNS: Currently, temperature 98.6, pulse 107, respiratory rate 16, saturation 96% on room air, blood pressure 129/73, weight 139 pounds. GENERAL: The patient is currently alert and awake in no obvious acute distress. HEAD: Normocephalic and atraumatic. Eyes, pupils are round, reactive to light. Extraocular muscle intact. ENT: Oropharynx within normal limits. Moist mucous membranes. No oral lesion. No pharyngeal erythema. No exudate. NECK: Supple. No JVD. No thyromegaly. No carotid bruit. LUNGS: Clear to auscultation without any rhonchi. CARDIAC: S1 and S2 regular. Systolic murmur present at the apex and parasternal. No gallop. No rub. ABDOMEN: Soft and benign. EXTREMITIES: No edema. NEUROLOGIC: Nonfocal examination. Paperwork for discharge done and discharge medication reconciliation done. TOTAL TIME SPENT: Total time spent on discharge today, 31 minutes. Job ID: [id number]
== END 2018-02-19 14:10 | DRG 871 ==
LOC: ERS 20:33 → ERHOLD 22:46 → T4-A 02-15 00:06 → 2NO 02-15 15:37 → T4-A 02-17 18:20
PROVIDERS: ADMIT Internal Medicine; ATTEND Internal Medicine
DX: A41.9 Sepsis, unspecified organism (principal); L89.153 Pressure ulcer of sacral region, stage 3; I50.23 Acute on chronic systolic (congestive) heart failure; G93.41 Metabolic encephalopathy; N39.0 Urinary tract infection, site not specified; I24.8 Other forms of acute ischemic heart disease; I13.0 Hypertensive heart and chronic kidney disease with heart failure and stage 1 through stage 4 chronic kidney disease, or unspecified chronic kidney disease; E87.2 Acidosis; E44.0 Moderate protein-calorie malnutrition; Z95.810 Presence of automatic (implantable) cardiac defibrillator; G31.83 Neurocognitive disorder with Lewy bodies; F02.80 Dementia in other diseases classified elsewhere, unspecified severity, without behavioral disturbance, psychotic disturbance, mood disturbance, and anxiety; H54.8 Legal blindness, as defined in USA; E78.5 Hyperlipidemia, unspecified; F41.9 Anxiety disorder, unspecified; F32.9 Major depressive disorder, single episode, unspecified; D53.9 Nutritional anemia, unspecified; N18.3 Chronic kidney disease, stage 3 (moderate); J20.9 Acute bronchitis, unspecified; I44.7 Left bundle-branch block, unspecified; I25.10 Atherosclerotic heart disease of native coronary artery without angina pectoris; N40.0 Benign prostatic hyperplasia without lower urinary tract symptoms; I08.1 Rheumatic disorders of both mitral and tricuspid valves; Z86.73 Personal history of transient ischemic attack (TIA), and cerebral infarction without residual deficits; Z68.21 Body mass index [BMI] 21.0-21.9, adult; I25.5 Ischemic cardiomyopathy
CPT/HCPCS: 36415; 51701; 71045; 80053; 81003; 81015; 82553; 83605; 83880; 84484; 85025; 87040; 87086; 87804; 93005; 94640; 94664; 96361; 96365; 96367; 96368; G8978-GP-CM; G8979-GP-CK; J0696; J1630; J1650; J1940; J1956; J2543; J2920; J3370; J7050; J7611; J7620

== ENCOUNTER 2018-05-09 21:35 | Inpatient (IN) | payer MEDICARE, MEDICAID ==
[~2018-05-09 21:35] MED LIST: ISOVUE-370 76%-LOCM 1 ML ONE
[2018-05-09 22:11] LABS: #Lymphocytes 1.8 thou/uL (1.20-3.40); #Monocytes 0.7 thou/uL (0.11-0.59); #Neutrophils 5.4 thou/uL (1.40-6.50); %Basophils 0.5 % (0.0-1.0); %Eosinophils 0.4 % (0.0-10.0); %Lymphocytes 22.2 % (21.0-51.0); %Monocytes 8.8 % (0.0-10.0); %Neutrophils 68.2 % (42.0-75.0); Hemoglobin 12.9 g/dL (14.0-18.0); Mean Corpuscular HGB CONC 32.1 g/dL (32.0-36.0); Mean Corpuscular Hemoglobin 33.3 pg (27.0-31.0); Mean Platelet Volume 8.8 fL (7.4-10.4); Platelet Count 145 thou/uL (130-400); RBC Distribution Width 13.5 % (11.5-14.5); Red Blood Cell (RBC) Count 3.88 mill/uL (4.70-6.10)
[2018-05-09 22:33] LABS: ALT (SGPT) 15 U/L (8-55); AST (SGOT) 27 U/L (5-34); Albumin 4.2 g/dL (3.4-4.8); Alkaline Phosphatase 80 U/L (40-150); Anion Gap 16 mmol/L (10-20); BUN (Urea Nitrogen) 36 mg/dL (8.4-25.7); Bilirubin, Total 1.3 mg/dL (0.2-1.2); CK (CPK) 69 U/L (30-200); Calc. Creatinine Clearance 0 mL/min (70-130); Calcium 10.2 mg/dL (7.8-10.44); Carbon Dioxide 26 mmol/L (23-31); Chloride 107 mmol/L (98-107); Estimated GFR-MDRD 45; Globulin 3.8 g/dL (2.4-3.5); Glucose 162 mg/dL (83-110); Potassium 4.6 mmol/L (3.5-5.1); Sodium 144 mmol/L (136-145)
[2018-05-09 22:52] LABS: CKMB 1.7 ng/mL (0-6.6)
[2018-05-09] MEDS ORDERED: Aspirin 325 MG TAB ONE (23:06)
--- NOTE | 2018-05-09 23:17 | CT ---
CT OF THE BRAIN WITHOUT CONTRAST 05/09/18 INDICATION: History of altered mental status. COMPARISON: Prior exam dated 01/15/17. 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 There is a small remote lacunar infarct involvi ng the superior left cerebellar hemisphere. There is mild chronic small vessel ischemic change. There is moderate generalized cerebral and cerebellar atrophy. Septum pellucidum and third ventricle are m idline. There is mucosal thickening within the sphenoid air cells and ethmoid air cells which are new . Mastoid air cells are clear. Skull is intact. IMPRESSION: 1. No acute intracranial abnormality. 2. Stable chronic ischemic change. 3. Paranasal sinus disease, new from the prior exam involving the sphenoid and ethmoid air cells . POS: JANNETTE
--- NOTE | 2018-05-09 23:24 | CT ---
CT OF THE ABDOMEN AND PELVIS WITH IV CONTRAST 05/09/18 INDICATION: History of distended abdomen and altered mental status. COMPARISON: Prior CT of the abdomen and pelvis with contrast dated 09/20/09. FINDINGS: The heterogeneously enhancing lesion within the left hepatic lobe has increased in size now measuring 16 x 8.9 cm with areas of peripheral nodular enhancement. This lesion measured 6.1 x 3.9 cm in 2010. There is some extension of the lesion into the superior aspect of the right hepatic lobe. Additional small nonspecific hypodensity seen within the right hepatic dome on image 17 of series 3 measuring a pproximately 9 mm which is new from the prior exam. The pancreas and adrenal glands are unremarkable. Kidneys are normal appearing. Spleen is normal appe aring. No pathologically enlarged lymph nodes are grossly evident. Bladder is partially decompressed. The unopacified large and small bowel are of normal caliber. There is diffuse osteopenia. There is scattered degenerative and osteoarthritic change. Prostatic raulito cifications within the lower pelvis. IMPRESSION: 1. Enlarging heterogeneously enhancing lesion within the left hepatic lobe extending into the ri ght hepatic lobe may reflect an enlarging hemangioma. This is incompletely characterized. Followup CT of the abdomen utilizing hemangioma protocol is recommended. There is a new lesion seen within the r ight hepatic dome measuring approximately 9 mm and also requires further evaluation. Primary hepatic malignancy or metastatic disease is not excluded. 2. No additional acute findings within the abdomen or pelvis. Code T POS: JANNETTE
[2018-05-10] MEDS ORDERED: Ondansetron ODT 4 MG TAB PO PRN (00:47)
[2018-05-10] MEDS ORDERED: Acetaminophen 325 MG TAB PO PRN ×2 (00:47→00:51)
[2018-05-10] MEDS ORDERED: Ondansetron PF 4 MG/2 ML Vial IVP PRN (00:47)
[2018-05-10] MEDS ORDERED: Milk Of Magnesia 30 ML UDCUP PO PRN (00:51)
[2018-05-10] MEDS ORDERED: PROVENTIL INHALER 6.7 G (200 INHALATIONS) INH PRN (00:51)
[2018-05-10 01:55] VITALS: BMI 23.2
[2018-05-10 01:57] LABS: Troponin I 0.102 ng/mL (< 0.028)
--- NOTE | 2018-05-10 03:56 | HP ---
PRIMARY CARE PHYSICIAN: Sammi Barrow MD CODE STATUS: Full code. TIME OF EVALUATION: 12 a.m. CHIEF COMPLAINT: Change in mental status. HISTORY OF PRESENT ILLNESS: This is an 82-year-old male patient with past medical history of BPH, malnutrition, dementia, AICD, hyperlipidemia, hypertension, and CHF, came to the hospital after having change in mental status as reported by the [facility] personnel, with no clear triggers, no alleviating factors. The patient was also reportedly combative and with decreased oral intake. The symptoms started suddenly. REVIEW OF SYSTEMS: Unable to obtain. The patient is confused. PAST MEDICAL HISTORY: As described in the HPI. PAST SURGICAL HISTORY: AICD in place. PSYCHIATRIC HISTORY: The patient has a history of anxiety, depression, and dementia. SOCIAL HISTORY: No alcohol, no drugs. No smoking history. Lives in snf. FAMILY HISTORY: Unable to obtain. The patient is confused. ALLERGIES: NO KNOWN DRUG ALLERGIES. REPORTED MEDICATIONS: 1. Aspirin. 2. Coreg. 3. Doxazosin. 4. Lasix. 5. Lexapro. 6. Lisinopril. 7. MiraLAX. 8. Ferrous sulfate. 9. Floranex. 10. Folic acid. 11. Lovastatin. 12. Remeron. 13. Famotidine. PHYSICAL EXAMINATION: VITAL SIGNS: On presentation; blood pressure 131/78 with heart rate 104, respiratory rate was 18, temperature 98.9, pain was 0/10, and oxygen saturation was 96% on room air. GENERAL APPEARANCE: The patient is alert, disoriented, not in acute distress, in good mood. HEENT: Eyes, normal conjunctivae. Moist oral mucosa. Anicteric. No JVD. RESPIRATORY: Bilateral air entry. No rales. No wheezes. Symmetric expansion. CARDIOVASCULAR: Normal rate, regular rhythm. No murmurs. No gallop. No edema. ABDOMEN: Soft. Normal bowel sounds. MUSCULOSKELETAL: Baseline range of motion. No sternal tenderness. SKIN: Warm, intact. No pallor. No rash. No redness. Peripheral pulses are present. Capillary refill seems to be intact. NEURO: No evidence of any new focal weakness. Baseline speech. Cranial nerves seem to be intact. PSYCH: The patient is unable to explore since the patient is confused. DIAGNOSTIC STUDIES: CARDIOVASCULAR STUDIES: EKG, the patient has sinus tachycardia at the rate of 101 with W[place] 142, QRS 126, QT corrected 490. No other specific findings for acute ischemic disease. LABORATORY RESULTS: Labs were reviewed. The patient has white count of 8.0, hemoglobin 12.9, MCV 104, and platelet count 145. Chemistry; sodium 144, potassium 4.6, chloride 107, carbon dioxide 26, anion gap 16, BUN 36 with creatinine 1.78. Previous creatinine was 1.24 in previous admissions. GFR 45, glucose 162, lactic acid 2.0, calcium 10.0, total bilirubin 1.3, and AST 27. LFTs are negative. Troponin I was 0.079 with beta natriuretic peptide of 762.6. IMAGING STUDIES: Brain CT was done. The patient has no acute intracranial abnormalities. Stable chronic ischemic changes. Paranasal sinus disease, new from prior exam involving the sphenoid and ethmoid air cells. Abdominal and pelvis CT; enlarging heterogeneously enhancing lesion with the hepatic lobe extending to the right hepatic lobe, may reflect an enlarging hemangioma that is incompletely characterized. Followup CT of the abdomen utilizing hemangioma protocol is recommended. There is a new lesion within the right hepatic dome, which may be 9 mm and also requires Surgery evaluation. Primary hepatic malignancy, metastatic disease is not excluded. No additional acute findings were seen within the abdomen. ASSESSMENT AND PLAN: The patient will be placed in the hospital with following medical problems: 1. Acute encephalopathy, unclear etiology. UA is pending. We will follow. Might treat if the patient has a urinary tract infection. Unknown what the baseline is. The patient has underlying dementia. At the time of my examination, the patient is more cooperative and has calmed down. 2. Acute kidney injury. The patient has a creatinine of 1.78. The previous creatinine was normal, so this is acute kidney injury. We will give hydration, we will monitor, we will adjust treatment as needed. 3. Hyperglycemia. Glucose 162, we will monitor, we will treat accordingly. 4. Mildly elevated troponin at 0.079. We will trend troponins, likely to have a [id number] myocardial infarction, type 1. 5. Deep venous thrombosis prophylaxis. 6. Hyperlipidemia. Low-cholesterol diet is advised. Reconcile home medications. 7. Controlled hypertension, reconcile home medications, adjust treatment as needed. 8. History of congestive heart failure reported with echo done on 12/04/2016 with ejection fraction of 20% to 25%. Reconcile home medications, continue diuresis. The patient has severe mitral regurgitation, also seen on the echo. We will repeat echo since the last one is almost 2 years old. Job ID: [id number]
[2018-05-10 05:13] LABS: Anion Gap 9 mmol/L (10-20); BUN (Urea Nitrogen) 31 mg/dL (8.4-25.7); Calc. Creatinine Clearance 34 mL/min (70-130); Calcium 9.1 mg/dL (7.8-10.44); Carbon Dioxide 26 mmol/L (23-31); Chloride 112 mmol/L (98-107); Estimated GFR-MDRD 51; Glucose 102 mg/dL (83-110); Potassium 4.3 mmol/L (3.5-5.1); Sodium 143 mmol/L (136-145)
[2018-05-10 05:16] LABS: Troponin I 0.105 ng/mL (< 0.028)
[2018-05-10 05:23] LABS: #Eosinphils 0.1 thou/uL (0.0-0.7); #Lymphocytes 1.8 thou/uL (1.20-3.40); #Neutrophils 4.9 thou/uL (1.40-6.50); %Basophils 0.2 % (0.0-1.0); %Lymphocytes 23.4 % (21.0-51.0); %Neutrophils 62.5 % (42.0-75.0); Hemoglobin 11.1 g/dL (14.0-18.0); Mean Corpuscular HGB CONC 32.2 g/dL (32.0-36.0); Mean Corpuscular Hemoglobin 33.2 pg (27.0-31.0); Mean Platelet Volume 8.3 fL (7.4-10.4); Platelet Count 115 thou/uL (130-400); Platelet Morphology Comment Appears Decreased; RBC Distribution Width 13.5 % (11.5-14.5); Red Blood Cell (RBC) Count 3.34 mill/uL (4.70-6.10); White Blood Cell (WBC) Count 7.8 thou/uL (4.8-10.8)
[2018-05-10] MEDS: Mometasone/Formoterol 120 PUFF INHALER INH SCH ×2 (07:15→18:38)
[2018-05-10] MEDS: Potassium Chloride 10 MEQ TAB PO SCH (08:43)
[2018-05-10] MEDS: Famotidine 20 MG TAB PO SCH ×2 (08:43→21:10)
[2018-05-10] MEDS: predniSONE 20 MG TAB PO SCH (08:43)
[2018-05-10] MEDS: Aspirin 81 mg Enteric Coated Tablet PO SCH (08:44)
[2018-05-10] MEDS: Enoxaparin Sodium 40 MG/0.4 ML SYRINGE SC SCH (08:44)
[2018-05-10] MEDS: Escitalopram Oxalate 20 mg Tablet PO SCH (08:44)
[2018-05-10] MEDS: Folic Acid 1 MG TAB PO SCH (08:44)
[2018-05-10] MEDS: guaiFENesin ER 600 MG TAB PO SCH ×2 (08:44→21:10)
[2018-05-10] MEDS: Carvedilol 3.125 MG TAB PO SCH ×2 (08:44→17:24)
[2018-05-10] MEDS ORDERED: Furosemide 20 MG TAB PO SCH (09:00)
--- NOTE | 2018-05-10 15:41 | PDOC.PN ---
- Subjective Encounter Start Date: 05/10/18 Encounter Start Time: 13:00 Says he is feeling a little better today. Denies specific problems. Denies abdominal pain. - Objective Resuscitation Status - Order Detail: 05/10/18 00:47 Resuscitation Status Routine Resuscitation Status: FULL: Full Resuscitation Vital Signs & Weight: Vital Signs (12 hours) Temp Pulse Resp BP Pulse Ox 05/10/18 08:00 96.4 F L 74 17 104/51 L 97 Weight Weight 144 lb 1.6 oz Result Diagrams: 05/10/18 04:43 05/10/18 04:43 Phys Exam - Physical Examination Constitutional: NAD Blind Respiratory: no wheezing, no rales, no rhonchi, clear to auscultation bilateral Cardiovascular: RRR, no significant murmur Gastrointestinal: soft, non-tender, positive bowel sounds Palpable mass in the midline of the upper abdomen. NT. Musculoskeletal: no edema Neurological: non-focal May a bit encephalopathic, but answers questions and is appropriate. Psychiatric: normal affect Dx/Plan (1) Acute kidney injury superimposed on chronic kidney disease Code(s): N17.9 - ACUTE KIDNEY FAILURE, UNSPECIFIED; N18.9 - CHRONIC KIDNEY DISEASE, UNSPECIFIED Status: Acute (2) Hyperglycemia Code(s): R73.9 - HYPERGLYCEMIA, UNSPECIFIED Status: Acute (3) Elevated troponin Code(s): R74.8 - ABNORMAL LEVELS OF OTHER SERUM ENZYMES Status: Acute (4) Encephalopathy acute Code(s): G93.40 - ENCEPHALOPATHY, UNSPECIFIED Status: Acute Comment: seems like now baseline (5) BPH (benign prostatic hyperplasia) Code(s): N40.0 - BENIGN PROSTATIC HYPERPLASIA WITHOUT LOWER URINRY TRACT SYMP Status: Chronic (6) CAD (coronary artery disease) Code(s): I25.10 - ATHSCL HEART DISEASE OF [place] CORONARY ARTERY W/O ANG PCTRS Status: Chronic (7) Dyslipidemia Code(s): E78.5 - HYPERLIPIDEMIA, UNSPECIFIED Status: Chronic (8) Abdominal mass Code(s): R19.00 - INTRA-ABD AND PELVIC SWELLING, MASS AND LUMP, UNSP SITE Status: Acute - Plan * Appears to be less encephalopathic, although I dont really know his baseline. * UA was just now obtained. No abx have been continued for now. * Continue fluids, but gently in light of the his cardiomyopathy with EF 20-30%. * Abdominal mass has been present for a number of years, but does seem to be slowly growing. * Cannot get CT abd with contrast due to renal function. * He is not a good candidate for aggressive interventions given poor renal and cardiac function.
[2018-05-10 15:46] LABS: Bacteria/HPF None Seen HPF (None Seen); Hyaline Casts/LPF 0-3 HYALINE CAST LPF (0-3 Hyaline); WBC/HPF 21-50 HPF (0-3)
[2018-05-10] MEDS: Lovastatin 20 MG TAB PO SCH (21:10)
[2018-05-10] MEDS: Doxazosin 2 MG TAB PO SCH (21:10)
[2018-05-11] MEDS: Mometasone/Formoterol 120 PUFF INHALER INH SCH ×2 (07:30→19:02)
[2018-05-11] MEDS: Potassium Chloride 10 MEQ TAB PO SCH (08:56)
[2018-05-11] MEDS: predniSONE 20 MG TAB PO SCH (08:56)
[2018-05-11] MEDS: Aspirin 81 mg Enteric Coated Tablet PO SCH (08:56)
[2018-05-11] MEDS: guaiFENesin ER 600 MG TAB PO SCH ×2 (08:57→20:13)
[2018-05-11] MEDS: Enoxaparin Sodium 40 MG/0.4 ML SYRINGE SC SCH (08:57)
[2018-05-11] MEDS: Carvedilol 3.125 MG TAB PO SCH ×2 (08:57→17:40)
[2018-05-11] MEDS: Famotidine 20 MG TAB PO SCH ×2 (08:57→20:13)
[2018-05-11] MEDS: Escitalopram Oxalate 20 mg Tablet PO SCH (08:57)
[2018-05-11] MEDS: Folic Acid 1 MG TAB PO SCH (08:57)
--- NOTE | 2018-05-11 13:04 | PQF ---
DEGROOTTAYLOR ABDIER [id number] CLINICAL DOCUMENTATION IMPROVEMENT CLARIFICATION FORM: ICD-10 Updated PLEASE DO AN ADDENDUM TO THE PROGRESS NOTE WITH ANY DOCUMENTATION UPDATES OR ADDITIONS AND CARRY THROUGH TO DC SUMMARY. THANK YOU. DATE: 05/11/18 ATTN: DR. REJI GRIDER Please exercise your independent, professional judgment in responding to the clarification form. Clinical indicators are provided on the bottom of this form for your review. Please check appropriate box(s): Acute Encephalopathy Etiology: [ x ] Metabolic [ ] Toxic [ ] in the setting of underlying dementia [ ] Other (please specify) [ ] Other diagnosis [ ] Unable to determine In addition, please specify: Present on Admission (POA): [x ] Yes [ ] No [ ] Unable to determine For continuity of documentation, please document condition throughout progress notes and discharge summary. Thank You. CLINICAL INDICATORS - SIGNS / SYMPTOMS / LABS ED RECORD 05/09 : PRISON REPORTS PATIENT ALTERED, COMBATIVE AND NOT EATING H & P 05/09 (MILVIA): PAST MEDICAL HISTORY OF DEMENTIA, CAME TO HOSPITAL AFTER HAVING CHANGE IN MENTAL STATUS, ALSO REPORTEDLY COMBATIVE AND WITH DECREASED ORAL INTAKE. ASSESSMENT: 1) ACUTE ENCEPHALOPATHY, UNCLEAR ETIOLOGY. PN 05/10 (CHEO): ASSESSMENT AND PLAN :1) ACUTE ENCEPHALOPATHY, SEEMS LIKE BASELINE NOW RISK: DEHYDRATION BRIAN DEMENTIA TREATMENT: ER 05/09 NS 1L THANK YOU, RAFAT (This form is maintained as a part of the permanent medical record) 2015 [employer], [email or web address] All Rights Reserved [email or web address] [phone] MTDD
--- NOTE | 2018-05-11 13:54 | PDOC.PN ---
- Subjective Encounter Start Date: 05/11/18 Encounter Start Time: 09:20 Doing better today. No complaints. - Objective Resuscitation Status - Order Detail: 05/10/18 00:47 Resuscitation Status Routine Resuscitation Status: FULL: Full Resuscitation Vital Signs & Weight: Vital Signs (12 hours) Temp Pulse Resp BP BP Pulse Ox 05/11/18 07:53 98 05/11/18 07:40 98.1 F 73 16 104/72 73 L 05/11/18 07:30 70 14 95 05/11/18 04:25 97.9 F 74 20 101/58 L 100 Weight Weight 144 lb 9.6 oz I&O: 05/10/18 05/11/18 05/12/18 06:59 06:59 06:59 Intake Total 595 Output Total 3 Balance 592 Result Diagrams: 05/10/18 04:43 05/10/18 04:43 Phys Exam - Physical Examination Constitutional: NAD Blind. Opaque pupils. Respiratory: no wheezing, no rales, no rhonchi, clear to auscultation bilateral Cardiovascular: RRR, no significant murmur, no rub Gastrointestinal: soft, non-tender, no distention Upper abd. mass palpable, non-tender. Musculoskeletal: no edema Psychiatric: normal affect, A&O x 3 Dx/Plan (1) Acute kidney injury superimposed on chronic kidney disease Code(s): N17.9 - ACUTE KIDNEY FAILURE, UNSPECIFIED; N18.9 - CHRONIC KIDNEY DISEASE, UNSPECIFIED Status: Acute (2) Hyperglycemia Code(s): R73.9 - HYPERGLYCEMIA, UNSPECIFIED Status: Acute (3) Elevated troponin Code(s): R74.8 - ABNORMAL LEVELS OF OTHER SERUM ENZYMES Status: Acute Comment: Type II demand ishcemia (4) Encephalopathy acute Code(s): G93.40 - ENCEPHALOPATHY, UNSPECIFIED Status: Resolved (5) BPH (benign prostatic hyperplasia) Code(s): N40.0 - BENIGN PROSTATIC HYPERPLASIA WITHOUT LOWER URINRY TRACT SYMP Status: Chronic (6) CAD (coronary artery disease) Code(s): I25.10 - ATHSCL HEART DISEASE OF [place] CORONARY ARTERY W/O ANG PCTRS Status: Chronic (7) Dyslipidemia Code(s): E78.5 - HYPERLIPIDEMIA, UNSPECIFIED Status: Chronic (8) Abdominal mass Code(s): R19.00 - INTRA-ABD AND PELVIC SWELLING, MASS AND LUMP, UNSP SITE Status: Acute - Plan * Back to normal mentation. * Discussed the abdominal mass. He was not aware that it existed. * He would pursue treatment if it were cancerous. * Discussed with radiology. Will order a NM liver/spleen hemangioma scan in light of his renal function. * Renal function approaching baseline.
[2018-05-11] MEDS: Lovastatin 20 MG TAB PO SCH (20:14)
[2018-05-11] MEDS: Doxazosin 2 MG TAB PO SCH (20:14)
[2018-05-12] MEDS: Mometasone/Formoterol 120 PUFF INHALER INH SCH ×2 (07:17→18:47)
[2018-05-12 08:07] LABS: Anion Gap 9 mmol/L (10-20); BUN (Urea Nitrogen) 20 mg/dL (8.4-25.7); Calc. Creatinine Clearance 46 mL/min (70-130); Calcium 8.6 mg/dL (7.8-10.44); Carbon Dioxide 26 mmol/L (23-31); Chloride 111 mmol/L (98-107); Estimated GFR-MDRD 73; Glucose 76 mg/dL (83-110); Potassium 3.8 mmol/L (3.5-5.1); Sodium 142 mmol/L (136-145)
[2018-05-12] MEDS: Carvedilol 3.125 MG TAB PO SCH ×2 (08:45→17:54)
[2018-05-12] MEDS: guaiFENesin ER 600 MG TAB PO SCH ×2 (08:45→21:08)
[2018-05-12] MEDS: predniSONE 20 MG TAB PO SCH (08:45)
[2018-05-12] MEDS: Famotidine 20 MG TAB PO SCH ×2 (08:45→21:08)
[2018-05-12] MEDS: Aspirin 81 mg Enteric Coated Tablet PO SCH (08:45)
[2018-05-12] MEDS: Potassium Chloride 10 MEQ TAB PO SCH (08:45)
[2018-05-12] MEDS: Enoxaparin Sodium 40 MG/0.4 ML SYRINGE SC SCH (08:45)
[2018-05-12] MEDS: Escitalopram Oxalate 20 mg Tablet PO SCH (08:45)
[2018-05-12] MEDS: Folic Acid 1 MG TAB PO SCH (08:45)
[2018-05-12] MEDS ORDERED: Lorazepam 2 MG/ML VIAL SLOW IVP SCH (15:15)
--- NOTE | 2018-05-12 18:03 | NM ---
NUCLEAR MEDICINE LIVER SPLEEN HEMANGIOMA SCAN 05/12/18 HISTORY: Probable hemangioma noted on recent CT. COMPARISON: None. TECHNIQUE: Patient administered 27 millicuries of technetium 99m tagged red blood cells intravenously. Planar an d SPECT imaging is performed. FINDINGS: SPECT images demonstrate avid uptake of the radiotracer in the left hepatic lobe, corresponding to th e finding on recent CT. There is scintigraphic evidence of a large hemangioma in the left hepatic lob e. IMPRESSION: Scintigraphic evidence of large hemangioma of the left hepatic lobe. POS: [facility]
--- NOTE | 2018-05-12 20:33 | PDOC.PN ---
- Subjective Encounter Start Date: 05/12/18 Encounter Start Time: 10:15 Says is doing ok. Has not complaints. - Objective Resuscitation Status - Order Detail: 05/10/18 00:47 Resuscitation Status Routine Resuscitation Status: FULL: Full Resuscitation Vital Signs & Weight: Vital Signs (12 hours) Temp Pulse Resp BP Pulse Ox 05/12/18 18:47 83 14 99 05/12/18 18:46 97.9 F 70 18 114/68 100 05/12/18 12:00 98.0 F 70 18 112/62 99 Weight Weight 144 lb 6.4 oz I&O: 05/11/18 05/12/18 05/13/18 06:59 06:59 06:59 Intake Total 595 1280 720 Output Total 3 2 Balance 592 1280 718 Result Diagrams: 05/10/18 04:43 05/12/18 07:38 Phys Exam - Physical Examination Constitutional: NAD Respiratory: no wheezing, no rales, no rhonchi Cardiovascular: RRR, no significant murmur, no rub Gastrointestinal: soft, non-tender, positive bowel sounds Large mid-upper abdomen mass, non-tender Musculoskeletal: no edema Dx/Plan (1) Acute kidney injury superimposed on chronic kidney disease Code(s): N17.9 - ACUTE KIDNEY FAILURE, UNSPECIFIED; N18.9 - CHRONIC KIDNEY DISEASE, UNSPECIFIED Status: Resolved (2) Hyperglycemia Code(s): R73.9 - HYPERGLYCEMIA, UNSPECIFIED Status: Resolved (3) Elevated troponin Code(s): R74.8 - ABNORMAL LEVELS OF OTHER SERUM ENZYMES Status: Acute Comment: Type II demand ishcemia (4) Encephalopathy acute Code(s): G93.40 - ENCEPHALOPATHY, UNSPECIFIED Status: Resolved (5) BPH (benign prostatic hyperplasia) Code(s): N40.0 - BENIGN PROSTATIC HYPERPLASIA WITHOUT LOWER URINRY TRACT SYMP Status: Chronic (6) CAD (coronary artery disease) Code(s): I25.10 - ATHSCL HEART DISEASE OF [place] CORONARY ARTERY W/O ANG PCTRS Status: Chronic (7) Dyslipidemia Code(s): E78.5 - HYPERLIPIDEMIA, UNSPECIFIED Status: Chronic (8) Abdominal mass Code(s): R19.00 - INTRA-ABD AND PELVIC SWELLING, MASS AND LUMP, UNSP SITE Status: Acute (9) Cardiomyopathy Code(s): I42.9 - CARDIOMYOPATHY, UNSPECIFIED Status: Acute Comment: EF 15-20 % - Plan * Appears to be at baseline. Renal function improved. Negative urine culture. * Suspect the encephalopathy was related to dehydration. * Stable cardiomyopathy. * Needs the abdominal mass diagnosed. Suspected hemangioma of the liver. Nuc med scan pending. * If mass appears benign, he can discharge. * Likely not a candidate for aggressive intervention if appears malignant.
[2018-05-12] MEDS: Doxazosin 2 MG TAB PO SCH (21:08)
[2018-05-12] MEDS: Lovastatin 20 MG TAB PO SCH (21:08)
[2018-05-13] MEDS: Mometasone/Formoterol 120 PUFF INHALER INH SCH ×2 (07:16→18:48)
[2018-05-13] MEDS: Enoxaparin Sodium 40 MG/0.4 ML SYRINGE SC SCH (10:13)
[2018-05-13] MEDS: Carvedilol 3.125 MG TAB PO SCH ×2 (10:14→18:17)
[2018-05-13] MEDS: Famotidine 20 MG TAB PO SCH ×2 (10:14→21:16)
[2018-05-13] MEDS: Potassium Chloride 10 MEQ TAB PO SCH (10:14)
[2018-05-13] MEDS: Folic Acid 1 MG TAB PO SCH (10:14)
[2018-05-13] MEDS: Aspirin 81 mg Enteric Coated Tablet PO SCH (10:14)
[2018-05-13] MEDS: guaiFENesin ER 600 MG TAB PO SCH ×2 (10:14→21:15)
[2018-05-13] MEDS: Escitalopram Oxalate 20 mg Tablet PO SCH (10:14)
--- NOTE | 2018-05-13 18:25 | EKG ---
Test Reason : AMS Blood Pressure : / mmHG Vent. Rate : 101 BPM Atrial Rate : 101 BPM P-R Int : 142 ms QRS Dur : 126 ms QT Int : 378 ms P-R-T Axes : 095 -39 094 degrees QTc Int : 490 ms Sinus tachycardia Left axis deviation Left bundle branch block Nonspecific T wave abnormality Abnormal ECG Confirmed by JUSTO GUDINO, JOSEPH Mckoy ([id number]), offline editor JACKELIN SIERRA ([id number]) on 05/13/2018 6:24:52 PM Referred By: Confirmed By:JOSEPH KEMP MD
[2018-05-13] MEDS: Lovastatin 20 MG TAB PO SCH (21:15)
[2018-05-13] MEDS: Doxazosin 2 MG TAB PO SCH (21:16)
--- NOTE | 2018-05-13 22:46 | PRG ---
DATE OF SERVICE: 05/13/2018 SUBJECTIVE: The patient denies any new complaints at this time. Mentation is improving. No fever, chills, chest pain, or shortness of breath reported. OBJECTIVE: VITAL SIGNS: Temperature 98.8, pulse 72, blood pressure 121/77, respirations of 18, O2 saturation 94% on room air. GENERAL: An 82-year-old male, in no apparent distress. LUNGS: Clear to auscultation bilaterally. No wheezing, rales, or rhonchi. HEART: S1 and S2 present. Regular rate and rhythm. ABDOMEN: Soft. Bowel sounds present. EXTREMITIES: No calf tenderness. LABORATORY FINDINGS: WBC 7.8 with hemoglobin 11.1, platelet count 115. Chemistry showed sodium 142, potassium 3.8, chloride 111, bicarb 26, BUN 20, creatinine 1.1, troponin maximum 0.105. CT scan of the brain was negative for acute findings. CT scan of the abdomen and pelvis showed possible hepatic hemangioma. Echocardiogram showed left ventricular ejection fraction of 15% to 20% with [id number]-va-ltypgm mitral regurgitation, mild tricuspid regurgitation. IMPRESSION: 1. Toxic metabolic encephalopathy, multifactorial, improving. 2. Acute kidney injury on chronic kidney disease stage 2, improving. 3. Elevated troponin secondary to demand ischemia. 4. Chronic macrocytic anemia. 5. Moderate protein calorie malnutrition. 6. Chronic systolic and diastolic heart failure, compensated ACC stage C. 7. Hypertension. 8. Hyperlipidemia. 9. Coronary artery disease. 10. Benign prostatic hypertrophy. 11. Anxiety and depression. 12. Alzheimer dementia. 13. Legal blindness. 14. Liver hemangioma. PLAN: Current medications were reviewed. We will continue carvedilol along with doxazosin and statins. We will continue Lexapro. DISPOSITION: Probably in 24 hours if stable. halfway placement. Continue other medications. Job ID: [id number] [facility]
[2018-05-14] MEDS: Aspirin 81 mg Enteric Coated Tablet PO SCH (08:55)
[2018-05-14] MEDS: Escitalopram Oxalate 20 mg Tablet PO SCH (08:55)
[2018-05-14] MEDS: Potassium Chloride 10 MEQ TAB PO SCH (08:56)
[2018-05-14] MEDS: Famotidine 20 MG TAB PO SCH (08:56)
[2018-05-14] MEDS: guaiFENesin ER 600 MG TAB PO SCH (08:56)
[2018-05-14] MEDS: Enoxaparin Sodium 40 MG/0.4 ML SYRINGE SC SCH (08:56)
[2018-05-14] MEDS: Folic Acid 1 MG TAB PO SCH (08:56)
[2018-05-14] MEDS: Carvedilol 3.125 MG TAB PO SCH (08:56)
[2018-05-14] MEDS: Mometasone/Formoterol 120 PUFF INHALER INH SCH (13:47)
[2018-05-14 15:11] VITALS: BP 133/81; TEMP 97.3
--- NOTE | 2018-05-14 15:58 | DIS ---
DATE OF ADMISSION: 05/09/2018 DATE OF DISCHARGE: 05/14/2018 DISCHARGE DISPOSITION: [facility]. The patient was seen and examined on the day of discharge. Denies any new complaints. ALLERGIES: NO KNOWN DRUG ALLERGIES. DISCHARGE MEDICATIONS: Lasix has been changed to 20 mg daily as needed for edema or weight gain. All other home medications were left unchanged. BRIEF HOSPITAL COURSE: The patient is an 82-year-old male, currently residing at nursing facility, presented to the hospital with altered mentation. His workup was consistent with acute kidney injury on chronic kidney disease, stage 2, with toxic metabolic encephalopathy. Diuretics and NIRMALA inhibitors were held. His renal function gradually improved. Echocardiogram showed left ventricular ejection fraction of 15% to 20% with sxrddbbr-le-opeznq mitral regurgitation and mild tricuspid regurgitation. A CT scan of the abdomen and pelvis in the emergency room showed enhancing lesion in the left hepatic lobe. He underwent a nuclear medicine scan of the liver, that showed large hemangioma of the left hepatic lobe. His mentation has significantly improved. He appears stable for discharge. Lasix has been changed to p.r.n. FINAL DIAGNOSES: 1. Toxic metabolic encephalopathy, multifactorial. 2. Acute kidney injury on chronic kidney disease, stage 2. 3. Liver hemangioma. 4. Elevated troponin secondary to demand ischemia. 5. Chronic macrocytic anemia. 6. Moderate protein-calorie malnutrition. 7. Chronic systolic and diastolic heart failure, compensated, ACC stage C. 8. Hypertension. 9. Hyperlipidemia. 10. Coronary artery disease. 11. Anxiety and depression. 12. Legally blind. 13. Benign prostatic hypertrophy. 14. Alzheimer dementia. TIME SPENT: Total time coordinating the discharge of this patient was 35 minutes. Job ID: [id number]
== END 2018-05-14 14:29 | DRG 682 ==
LOC: ERS 21:35 → 2NO 23:10
PROVIDERS: ADMIT Hospitalist; ATTEND Hospitalist
DX: N17.9 Acute kidney failure, unspecified (principal); G93.41 Metabolic encephalopathy; I13.0 Hypertensive heart and chronic kidney disease with heart failure and stage 1 through stage 4 chronic kidney disease, or unspecified chronic kidney disease; E44.0 Moderate protein-calorie malnutrition; I24.8 Other forms of acute ischemic heart disease; I50.42 Chronic combined systolic (congestive) and diastolic (congestive) heart failure; R73.9 Hyperglycemia, unspecified; E78.5 Hyperlipidemia, unspecified; I34.0 Nonrheumatic mitral (valve) insufficiency; N18.2 Chronic kidney disease, stage 2 (mild); Z68.22 Body mass index [BMI] 22.0-22.9, adult; I25.10 Atherosclerotic heart disease of native coronary artery without angina pectoris; N40.0 Benign prostatic hyperplasia without lower urinary tract symptoms; F41.9 Anxiety disorder, unspecified; F32.9 Major depressive disorder, single episode, unspecified; G30.9 Alzheimer's disease, unspecified; F02.80 Dementia in other diseases classified elsewhere, unspecified severity, without behavioral disturbance, psychotic disturbance, mood disturbance, and anxiety; D53.9 Nutritional anemia, unspecified; H54.8 Legal blindness, as defined in USA; I07.1 Rheumatic tricuspid insufficiency; D18.09 Hemangioma of other sites; Z95.810 Presence of automatic (implantable) cardiac defibrillator; Z79.82 Long term (current) use of aspirin; Z79.899 Other long term (current) drug therapy
CPT/HCPCS: 36415; 51701; 70450; 74177; 78206; 80048; 80053; 81015; 82550; 82553; 83605; 83880; 84145; 84484; 85025; 87040; 87086; 93005; 93306; 96360; 96361; A9604; J1650; J2060; Q9966

== ENCOUNTER 2019-05-23 18:45 | Emergency (ER) | payer MEDICARE, MEDICAID ==
[2019-05-23 19:42] LABS: #Eosinphils 0.2 thou/uL (0.0-0.7); #Lymphocytes 1.8 thou/uL (1.20-3.40); %Basophils 0.6 % (0.0-1.0); %Lymphocytes 25.5 % (21.0-51.0); %Monocytes 14.4 % (0.0-10.0); %Neutrophils 56.5 % (42.0-75.0); Hemoglobin 10.8 g/dL (14.0-18.0); Mean Corpuscular HGB CONC 32.1 g/dL (32.0-36.0); Mean Corpuscular Hemoglobin 33.6 pg (27.0-31.0); RBC Distribution Width 14.2 % (11.5-14.5); White Blood Cell (WBC) Count 7.1 thou/uL (4.8-10.8)
[2019-05-23 19:46] LABS: Mean Platelet Volume 9.6 fL (7.4-10.4); Platelet Count 108 thou/uL (130-400)
--- NOTE | 2019-05-23 19:53 | RAD ---
EXAM: CHEST ONE VIEW HISTORY: Dyspnea. COMPARISON: 02/14/2018 FINDINGS: Single lead left subclavian AICD device remains in place. Cardiac silhouette is magnified by projecti on but is enlarged. The pulmonary vasculature is within normal limits. There is suboptimal evaluation of the left lung base due to the enlarged cardiac silhouette. No definite consolidation or pleural effusion is appreciated. Postsurgical changes right humeral head are again seen. Vascular calcifications are seen in the thoracic aorta. Chest is overall stable compared to prior exam. IMPRESSION: 1. Stable chest without evidence of an acute cardiopulmonary process. 2. Cardiomegaly.
[2019-05-23 19:58] LABS: Anisocytosis SLIGHT = 6-15 cells (100X) (0-5/hpf); Helmet Cells SLIGHT = 2-5 cells (100X) (0-1/hpf); Hypochromia SLIGHT = 6-15 cells (100X) (0-5/hpf); MDiff Complete? YES; Macrocytosis SLIGHT = 6-15 cells (100X) (0-5/hpf); Platelet Morphology Comment Appears Decreased; Polychromasia SLIGHT = 2-3 cells (100X) (0-2/hpf); Schistocytes SLIGHT = 2-5 cells (100X) (0-1/hpf)
[2019-05-23 20:05] LABS: ALT (SGPT) 18 U/L (8-55); AST (SGOT) 30 U/L (5-34); Albumin 3.3 g/dL (3.4-4.8); Alkaline Phosphatase 111 U/L (40-110); Anion Gap 12 mmol/L (10-20); BUN (Urea Nitrogen) 37 mg/dL (8.4-25.7); Bilirubin, Total 1.7 mg/dL (0.2-1.2); Calc. Creatinine Clearance 0 mL/min (70-130); Calcium 9.3 mg/dL (7.8-10.44); Carbon Dioxide 28 mmol/L (23-31); Chloride 112 mmol/L (98-107); Estimated GFR-MDRD 61; Globulin 3.1 g/dL (2.4-3.5); Glucose 195 mg/dL (83-110); Potassium 4.7 mmol/L (3.5-5.1); Protein, Total 6.4 g/dL (5.8-8.1); Sodium 147 mmol/L (136-145)
[2019-05-23 20:22] LABS: CKMB 1.9 ng/mL (0-6.6)
[2019-05-23 20:34] LABS: Bacteria/HPF None Seen HPF (None Seen); Bilirubin Negative (Negative); Blood, Urine 1+ (Negative); Clarity Clear (Clear); Glucose, Urine (Dipstick) Normal (Negative); Leukocyte 250 Leu/uL (Negative); Nitrite Negative (Negative); Protein, Urine (Dipstick) Negative (Neg-Trace); Squamous Epithelial 0-3 HPF (0-3); Urobilinogen 6 mg/dL (Less than 2)
[2019-05-23] MEDS ORDERED: Furosemide 40 MG/4 ML VIAL ONE (21:26)
[2019-05-23] MEDS ORDERED: Furosemide 40 MG TAB ONE (21:26)
[2019-05-23 22:35] LABS: Lactic Acid 1.7 mmol/L (0.5-2.2)
--- NOTE | 2019-05-26 14:49 | EKG ---
Test Reason : Blood Pressure : / mmHG Vent. Rate : 103 BPM Atrial Rate : 103 BPM P-R Int : 162 ms QRS Dur : 124 ms QT Int : 374 ms P-R-T Axes : 064 -39 136 degrees QTc Int : 489 ms Sinus tachycardia with occasional Premature ventricular complexes Left axis deviation Left bundle branch block Abnormal ECG Confirmed by WERO RAYA ([id number]), visual effects editor TIM IRELAND ([id number]) on 05/26/2019 2:49:23 PM Referred By: Confirmed By:WERO RAYA
== END 2019-05-23 22:35 ==
LOC: ERS 18:45
DX: E87.70 Fluid overload, unspecified (principal); G31.83 Neurocognitive disorder with Lewy bodies; F02.80 Dementia in other diseases classified elsewhere, unspecified severity, without behavioral disturbance, psychotic disturbance, mood disturbance, and anxiety; E78.5 Hyperlipidemia, unspecified; I11.0 Hypertensive heart disease with heart failure; I50.9 Heart failure, unspecified; I25.2 Old myocardial infarction; Z86.73 Personal history of transient ischemic attack (TIA), and cerebral infarction without residual deficits; F41.9 Anxiety disorder, unspecified; F32.9 Major depressive disorder, single episode, unspecified; Z79.82 Long term (current) use of aspirin; Z79.899 Other long term (current) drug therapy
CPT/HCPCS: 36415; 51701; 71045; 80053; 81003; 81015; 82553; 83605; 83880; 84484; 85025; 93005; 96374; J1940

== ENCOUNTER 2019-06-29 19:44 | Inpatient (IN) | payer MEDICARE, MEDICAID ==
[~2019-06-29 19:44] MED LIST changes: -ISOVUE-370 76%-LOCM 1 ML ONE; +Iopamidol-370 76% 500 ML 1 ML ONE
[2019-06-29 20:18] LABS: #Eosinphils 0.1 thou/uL (0.0-0.7); #Lymphocytes 1.3 thou/uL (1.20-3.40); #Monocytes 0.9 thou/uL (0.11-0.59); #Neutrophils 6.1 thou/uL (1.40-6.50); %Basophils 0.3 % (0.0-1.0); %Eosinophils 1.4 % (0.0-10.0); %Lymphocytes 15.5 % (21.0-51.0); %Neutrophils 71.8 % (42.0-75.0); Hemoglobin 11.9 g/dL (14.0-18.0); Mean Corpuscular HGB CONC 31.8 g/dL (32.0-36.0); Mean Corpuscular Hemoglobin 33.4 pg (27.0-31.0); Mean Platelet Volume 10.5 fL (7.4-10.4); Platelet Count 95 thou/uL (130-400); RBC Distribution Width 15.5 % (11.5-14.5); Red Blood Cell (RBC) Count 3.55 mill/uL (4.70-6.10); White Blood Cell (WBC) Count 8.5 thou/uL (4.8-10.8)
[2019-06-29 20:39] LABS: ALT (SGPT) 21 U/L (8-55); AST (SGOT) 26 U/L (5-34); Alkaline Phosphatase 111 U/L (40-110); Anion Gap 12 mmol/L (10-20); BUN (Urea Nitrogen) 40 mg/dL (8.4-25.7); Bilirubin, Total 1.7 mg/dL (0.2-1.2); Calc. Creatinine Clearance 0 mL/min (70-130); Calcium 9.3 mg/dL (7.8-10.44); Carbon Dioxide 27 mmol/L (23-31); Chloride 115 mmol/L (98-107); Estimated GFR-MDRD 62; Globulin 3.3 g/dL (2.4-3.5); Glucose 337 mg/dL (83-110); Lipase 36 U/L (8-78); Potassium 4.2 mmol/L (3.5-5.1); Protein, Total 6.3 g/dL (5.8-8.1); Sodium 150 mmol/L (136-145)
[2019-06-29 20:41] LABS: Bacteria/HPF None Seen HPF (None Seen); Bilirubin Negative (Negative); Blood, Urine Negative (Negative); Clarity Clear (Clear); Glucose, Urine (Dipstick) Normal (Negative); Leukocyte 75 Leu/uL (Negative); Nitrite Negative (Negative); Protein, Urine (Dipstick) 10 mg/dL (Neg-Trace); RBC/HPF 0-3 HPF (0-3); Squamous Epithelial 0-3 HPF (0-3)
--- NOTE | 2019-06-29 21:39 | CT ---
CT ABDOMEN AND PELVIS 06/29/19 COMPARISON: 03/08/19. HISTORY: Abdominal pain. TECHNIQUE: Axial CT imaging at 5 mm intervals from lung bases through pubic symphysis with IV contrast. Coronal and sagittal reformatted imaging obtained. FINDINGS: The superior aspect of the liver dome is not fully imaged on this exam. There is a small incompletely imaged right pleural effusion. The partially visualized pacing lead overlies the right ventricle. St able cardiomegaly. The spleen is unremarkable. There is a large heterogeneous lesion involving the ma jority of the left lobe of the liver measuring at least 15 cm in transverse dimension, stable when co mpared to prior imaging, evidence of a large hepatic hemangioma. There is small volume ascites in the perihepatic and perisplenic regions, near when compared to prior imaging. Gallbladder, pancreas, and adrenal glands grossly unremarkable as are bilateral kidneys. There is new small/moderate volume ascites within the pelvis with small volume free fluid within bila teral pericolic gutters. There is evidence of anasarca with diffuse stranding of the subcutaneous fat throughout the abdomen/pelvis. Small bilateral fat containing inguinal hernias are present. Extensive dystrophic prosthetic calcifications noted. There is no focal area of bowel inflammatory change. There is no evidence for bowel obstruction. There is scattered atherosclerotic calcification involving the abdominal aorta and its branches. No p elvic mesenteric or retroperitoneal lymphadenopathy. Review of the osseous structures demonstrates multilevel lower lumbar spine facet hypertrophy and dis c space narrowing, most prominent at the L4-5 and L5-S1 levels. No acute osseous abnormality is noted. IMPRESSION: 1. Evidence of anasarca with new ascites. 2. Large hepatic hemangioma involving the majority of the left lobe of the liver, a stable findi ng. 3. No evidence for bowel obstruction. POS: [facility]
[2019-06-29] MEDS ORDERED: Insulin Regular 300 UNITS/3 ML VIAL ONE (21:50)
[2019-06-29 22:35] LABS: INR-International Normal Ratio 1.6; PTT 29.2 SEC (22.9-36.1); Prothrombin Time 18.5 SEC (12.0-14.7)
[2019-06-29] MEDS ORDERED: Ondansetron ODT 4 MG TAB SL PRN (23:50)
[2019-06-29] MEDS ORDERED: Ondansetron PF 4 MG/2 ML Vial IVP PRN (23:50)
[2019-06-30] MEDS ORDERED: Ondansetron PF 4 MG/2 ML Vial IVP PRN (02:09)
[2019-06-30] MEDS ORDERED: hydrALAZINE 20 MG/ML VIAL SLOW IVP PRN (02:09)
[2019-06-30] MEDS ORDERED: Dextrose 5% in Water 1,000 ML IV SCH ×2 (02:15→07:00)
--- NOTE | 2019-06-30 02:45 | HP ---
PRIMARY CARE PHYSICIAN: Dr. Barrow. CHIEF COMPLAINT: Decreased responsiveness. HISTORY OF PRESENT ILLNESS: The history of present illness is taken from discussion with the ER physician as the patient has advanced dementia and is currently nonverbal and unable to give me any additional history. He is a senior living resident and was sent over from the senior living due to concerns for decreased responsiveness. Apparently, he is typically oriented to person only and it was noted that he was not responding as much and it is also noted that he had some abdominal distention and bloating and had no vomiting or constipation. Otherwise, no other history is obtainable. He was evaluated in the ER and had a CT scan of the abdomen and pelvis done. It showed that he had evidence of some anasarca with some new ascites. He has a large hepatic hemangioma, which was stable from previous exam. It was also noted that his serum sodium was elevated as well as his creatinine, and he is being admitted for further evaluation. It is noted that he was hospitalized about a year ago for what appears to be similar symptoms where he was confused and found to have a toxic metabolic encephalopathy, which was due to volume depletion. He was hydrated and it appears that this resolved. Also, it is noted that he does have fairly advanced heart failure with an EF of around 15% to 20% as of last year. REVIEW OF SYSTEMS: Unobtainable due to the patient being nonverbal. PAST MEDICAL HISTORY: Taken from a previous history and physical back in [address] Jaime and includes hypertension, chronic systolic heart failure, hyperlipidemia, BPH, malnutrition, and Alzheimer dementia. PAST SURGICAL HISTORY: He has had an AICD placed. ALLERGIES: NO KNOWN DRUG ALLERGIES. SOCIAL HISTORY: He is nonsmoker and nondrinker and a senior living resident. FAMILY HISTORY: Unknown. MEDICATIONS: Taken from the records and include, 1. Famotidine 20 mg twice daily. 2. Carvedilol 3.125 mg twice a day. 3. Klor-Con 10 mEq daily. 4. MiraLAX 17 g daily. 5. Mirtazapine 15 mg daily. 6. Lovastatin 40 mg daily. 7. Lisinopril 40 mg daily. 8. Floranex daily. 9. Albuterol q.i.d. as needed. 10. Lasix 20 mg twice a day. 11. Folic acid 1 mg daily. 12. Iron sulfate 325 mg daily. 13. Lexapro 40 mg daily. 14. Doxazosin 2 mg daily. 15. Aspirin 81 mg a day. PHYSICAL EXAMINATION: GENERAL: He is awake and alert, but he does not follow commands. He does not try to answer questions or engage at all. He is just lying on the bed, appears to be mumbling but does not appear to be in any distress. He is well developed and well nourished. VITAL SIGNS: Blood pressure is 114/66, heart rate of 80, respiratory rate of 18, and temperature is 96.7. HEENT: Pupils are equal and reactive. Throat, mildly dry mucous membranes. NECK: No adenopathy. No bruits. LUNGS: Clear to auscultation. There is no wheezing, no rales, no rhonchi. CARDIOVASCULAR: He has a normal S1 and S2. I did not appreciate an S3 or S4. No murmurs, clicks. No rubs. ABDOMEN: Distended, tympanic to percussion. Positive for bowel sounds. There is no evidence of any rebound, guarding, or tenderness. EXTREMITIES: 1+ edema. No calf tenderness. NEUROLOGIC: Grossly nonfocal. SKIN AND INTEGUMENT: No skin changes. No rash. LABORATORY DATA: White blood cell count 8.5, hemoglobin 11.9, hematocrit is 37.3, and platelet count is 95. INR is 1.6. Sodium 150, potassium 4.2, chloride is 115, CO2 is 27, BUN of 40, creatinine 1.34, glucose is 337. CT scan of the abdomen demonstrated evidence of anasarca with new ascites and a large hepatic hemangioma, however, this was stable. ASSESSMENT: 1. This is an 83-year-old gentleman, who was sent over due to abdominal distention and is reported to have had altered mental status. Unfortunately, there is no family at the bedside to determine whether or not he is at his baseline. I suspect he may be close to his baseline and I am unsure what degree of altered mental status he is actually having. It appears as if when he had encephalopathy in the past, it was due to dehydration and I suspect it is due to this on this occasion as his sodium is elevated to 150 as well as his creatinine is slightly elevated. For the plan with regard to the altered mental status, we will go ahead and cautiously rehydrate him given his history of significant heart failure. Check a chest x-ray to make sure he does not have a hidden pneumonia and an abdominal ultrasound to assess the volume of the ascites and if there is significant ascites, this can be tapped for further diagnostic purposes. 2. Chronic systolic heart failure. This appears to be more or less compensated. Intravascularly, he is volume depleted despite having the anasarca. We will hold his Lasix and Aldactone at least for 24 hours. 3. Hypertension. Blood pressure appears to be well controlled. 4. Malnutrition. He is on a pureed diet. He must have some degree of dysphagia. We will get Speech Therapy to evaluate. 5. Chronic macrocytic anemia. This appears to be chronic and stable. We will check a B12 and folic acid as I do not see that these have been checked recently. Further recommendations to follow. Job ID: [id number]
[2019-06-30] MEDS ORDERED: HumaLOG 300 UNITS/3 ML VIAL SC PRN (02:56)
[2019-06-30] MEDS ORDERED: Dextrose 5% in Water 1,000 ML IV PRN (02:56)
[2019-06-30] MEDS ORDERED: Dextrose 50% Abboject 50 ML SYRINGE SLOW IVP PRN (02:56)
[2019-06-30] MEDS ORDERED: Sodium Chloride 0.45% 1,000 ML IV SCH (03:30)
[2019-06-30 06:05] LABS: #Eosinphils 0.1 thou/uL (0.0-0.7); #Monocytes 1.3 thou/uL (0.11-0.59); #Neutrophils 6.3 thou/uL (1.40-6.50); %Basophils 0.4 % (0.0-1.0); %Eosinophils 1.3 % (0.0-10.0); %Monocytes 11.6 % (0.0-10.0); %Neutrophils 58.7 % (42.0-75.0); Hemoglobin 11.6 g/dL (14.0-18.0); Mean Corpuscular HGB CONC 30.5 g/dL (32.0-36.0); Mean Corpuscular Hemoglobin 31.9 pg (27.0-31.0); Mean Platelet Volume 11.5 fL (7.4-10.4); Platelet Count 97 thou/uL (130-400); RBC Distribution Width 15.7 % (11.5-14.5); Red Blood Cell (RBC) Count 3.65 mill/uL (4.70-6.10); White Blood Cell (WBC) Count 10.8 thou/uL (4.8-10.8)
[2019-06-30 06:23] LABS: Anion Gap 12 mmol/L (10-20); BUN (Urea Nitrogen) 35 mg/dL (8.4-25.7); Calc. Creatinine Clearance 51 mL/min (70-130); Calcium 9.6 mg/dL (7.8-10.44); Carbon Dioxide 28 mmol/L (23-31); Chloride 118 mmol/L (98-107); Estimated GFR-MDRD 77; Potassium 3.8 mmol/L (3.5-5.1); Sodium 154 mmol/L (136-145)
[2019-06-30 06:32] LABS: Glucose 55 mg/dL (83-110)
--- NOTE | 2019-06-30 08:32 | RAD ---
SINGLE VIEW CHEST: HISTORY: Altered mental status. COMPARISON: 05/23/19 FINDINGS: A single view of the chest shows an enlarged cardiomediastinal silhouette. The pacemaker is unchanged in position. There is no evidence of consolidation, mass or pleural effusion. There is elevation of the right hemidiaphragm. IMPRESSION: Cardiomegaly. POS: [facility]
[2019-06-30] MEDS: Heparin 5,000 UNITS/ML VIAL SC SCH ×3 (09:09→20:18)
--- NOTE | 2019-06-30 09:33 | ULT ---
COMPLETE ABDOMINAL ULTRASOUND: HISTORY: New onset ascites. COMPARISON: CT abdomen and pelvis from 06/29/2019. TECHNIQUE: Multiplanar, heredia-scale and color Doppler images were obtained in a complete abdominal ultrasound. Sp ectral analysis of the Doppler wave-forms of the portal vein was performed. FINDINGS: There is large heterogeneous region in the left lobe of the liver, measuring 3.9 cm in greatest dimen juan manuel. There is increased echogenicity of the anterior aspect of the right lobe of the liver with a ge ographic area of decreased echogenicity in the right lobe of the liver. A small amount of ascites is seen adjacent to the liver. The findings in the liver most likely represent the changes seen secondar y to the hemangioma on the CT. No intrahepatic biliary dilatation is seen. The gallbladder is normal without stones, sludge, gallbladder wall thickening or pericholecystic flui d. The common bile duct cannot be seen. The aorta and inferior vena cava are normal in caliber. The visualized portions of the pancreas are u nremarkable. The spleen is normal in echogenicity without focal lesions and measures 8.6 cm in length . The right kidney cannot be visualized. The left kidney is normal in echogenicity without hydronephros is or calculus and measures 8.3 cm in length. IMPRESSION: 1. There is a heterogeneous appearance of the liver. This most likely represents the large hemangioma seen on CT. 2. Trace ascites. POS: [facility]
[2019-06-30] MEDS: Escitalopram Oxalate 20 mg Tablet PO SCH (10:50)
[2019-06-30] MEDS: Aspirin 81 mg Enteric Coated Tablet PO SCH (10:50)
[2019-06-30] MEDS: Atorvastatin Calcium 10 MG TAB PO SCH (10:50)
[2019-06-30] MEDS: Doxazosin 2 MG TAB PO SCH (10:50)
[2019-06-30] MEDS: Ferrous Sulfate 325 MG TAB PO SCH (10:50)
[2019-06-30] MEDS: Carvedilol 3.125 MG TAB PO SCH ×2 (10:50→14:29)
[2019-06-30] MEDS: Polyethylene Glycol 3350 17 GM Packet PO SCH (10:50)
[2019-06-30] MEDS: Famotidine 20 MG TAB PO SCH ×2 (10:50→19:51)
[2019-06-30] MEDS: Mirtazapine 15 MG TAB PO SCH (10:51)
[2019-06-30 12:09] LABS: Sodium 150 mmol/L (136-145)
[2019-06-30] MEDS: Dextrose 5% in Water 1,000 ML IV SCH (12:15)
[2019-06-30] MEDS: HumaLOG 300 UNITS/3 ML VIAL SC PRN (12:30)
[2019-06-30] MEDS: Folic Acid 1 MG TAB PO SCH (19:54)
[2019-06-30 20:35] LABS: Sodium 148 mmol/L (136-145)
[2019-07-01 06:03] LABS: Anion Gap 10 mmol/L (10-20); BUN (Urea Nitrogen) 29 mg/dL (8.4-25.7); Calc. Creatinine Clearance 50 mL/min (70-130); Calcium 8.8 mg/dL (7.8-10.44); Carbon Dioxide 27 mmol/L (23-31); Chloride 113 mmol/L (98-107); Estimated GFR-MDRD 76; Glucose 193 mg/dL (83-110); Magnesium 2.2 mg/dL (1.6-2.6); Sodium 146 mmol/L (136-145)
[2019-07-01] MEDS: HumaLOG 300 UNITS/3 ML VIAL SC PRN ×2 (06:06→18:35)
[2019-07-01] MEDS: Dextrose 5% in Water 1,000 ML IV SCH ×2 (06:10→12:15)
[2019-07-01] MEDS: Atorvastatin Calcium 10 MG TAB PO SCH (07:57)
[2019-07-01] MEDS: Ferrous Sulfate 325 MG TAB PO SCH (07:57)
[2019-07-01] MEDS: Carvedilol 3.125 MG TAB PO SCH ×3 (07:57→16:21)
[2019-07-01] MEDS: Aspirin 81 mg Enteric Coated Tablet PO SCH (07:57)
[2019-07-01] MEDS: Doxazosin 2 MG TAB PO SCH ×2 (07:58→09:15)
[2019-07-01] MEDS: Mirtazapine 15 MG TAB PO SCH (07:58)
[2019-07-01] MEDS: Polyethylene Glycol 3350 17 GM Packet PO SCH (07:58)
[2019-07-01] MEDS: Escitalopram Oxalate 20 mg Tablet PO SCH (07:58)
[2019-07-01] MEDS: Famotidine 20 MG TAB PO SCH ×2 (07:58→20:27)
[2019-07-01] MEDS: Heparin 5,000 UNITS/ML VIAL SC SCH ×3 (08:31→20:31)
--- NOTE | 2019-07-01 15:31 | PDOC.HOSPP ---
- Subjective Encounter Date: 07/01/19 Encounter Time: 09:00 Subjective: no overnight events. This morning, at baseline mentation. dysarthric (baseline) and dysphagic (per speech and swallow). Spoke with - Objective Vital Signs & Weight: Vital Signs (12 hours) Temp Pulse Resp BP Pulse Ox 07/01/19 11:10 97.3 F L 92 20 133/82 100 07/01/19 08:30 98 07/01/19 07:25 97.6 F 104 H 18 121/76 98 07/01/19 03:34 97.5 F L 94 16 127/83 100 Weight Admit Weight 153 lb 8 oz Weight 161 lb 12.8 oz I&O: 06/30/19 07/01/19 07/02/19 06:59 06:59 06:59 Intake Total 260 1630 Balance 260 1630 Result Diagrams: 06/30/19 05:22 07/01/19 04:45 Additional Labs: Accuchecks 07/01/19 07/01/19 06/30/19 11:17 05:53 23:57 POC Glucose 137 H 237 H 183 H 06/30/19 06/30/19 06/30/19 19:18 16:16 05:48 POC Glucose 136 H 144 H 68 L Hospitalist ROS - Medication Medications: Active Medications Generic Name Dose Route Start Last Admin Trade Name Freq PRN Reason Stop Dose Admin Albuterol/Ipratropium 3 ml 06/30/19 04:25 06/30/19 05:27 Duoneb NEB 3 ml [id number] PRN Administration SOB &/or Wheezing Aspirin 81 mg 06/30/19 09:00 07/01/19 07:57 Ecotrin PO Not Given DAILY [facility] Atorvastatin Calcium 10 mg 06/30/19 09:00 07/01/19 07:57 Lipitor PO Not Given DAILY [facility] Carvedilol 3.125 mg 06/30/19 08:00 07/01/19 09:15 Coreg PO 3.125 mg BID-WM [facility] Administration Dextrose/Water 25 gm 06/30/19 02:56 06/30/19 06:42 Dextrose 50% SLOW IVP 25 gm PRN PRN Administration Hypoglycemia Doxazosin Mesylate 2 mg 06/30/19 09:00 07/01/19 09:15 Cardura PO 2 mg QAM [facility] Administration Escitalopram Oxalate 40 mg 06/30/19 09:00 07/01/19 07:58 Lexapro PO Not Given DAILY [facility] Famotidine 20 mg 06/30/19 09:00 07/01/19 07:58 Pepcid PO Not Given BID [facility] Ferrous Sulfate 325 mg 06/30/19 08:00 07/01/19 07:57 Feosol PO Not Given QAM-WM [facility] Folic Acid 1 mg 06/30/19 21:00 06/30/19 19:54 Folvite PO Not Given HS [facility] Heparin Sodium (Porcine) 5,000 units 06/30/19 09:00 07/01/19 08:31 Heparin SC 5,000 units TID [facility] Administration Dextrose/Water 1,000 mls @ 70 mls/hr 06/30/19 12:13 07/01/19 12:15 D5w IV 1,000 mls .[id number] [facility] Administration Insulin Human Lispro 0 units 06/30/19 02:56 07/01/19 06:06 Humalog SC 3 unit .MILD SLIDING SCALE PRN Administration Mild Correctional Scale Mirtazapine 15 mg 06/30/19 09:00 07/01/19 07:58 Remeron PO Not Given QAM [facility] Polyethylene Glycol 17 gm 06/30/19 09:00 07/01/19 07:58 Miralax PO Not Given DAILY [facility]
[2019-07-01] MEDS: Folic Acid 1 MG TAB PO SCH (20:27)
[2019-07-02] MEDS: Dextrose 5% in Water 1,000 ML IV SCH (04:12)
[2019-07-02 04:50] VITALS: BMI 21.9
[2019-07-02] MEDS: HumaLOG 300 UNITS/3 ML VIAL SC PRN (05:56)
[2019-07-02] MEDS: Famotidine 20 MG TAB PO SCH (07:41)
[2019-07-02] MEDS: Mirtazapine 15 MG TAB PO SCH (07:41)
[2019-07-02] MEDS: Escitalopram Oxalate 20 mg Tablet PO SCH (07:41)
[2019-07-02] MEDS: Carvedilol 3.125 MG TAB PO SCH ×2 (07:41→16:56)
[2019-07-02] MEDS: Aspirin 81 mg Enteric Coated Tablet PO SCH (07:41)
[2019-07-02] MEDS: Doxazosin 2 MG TAB PO SCH (07:41)
[2019-07-02] MEDS: Atorvastatin Calcium 10 MG TAB PO SCH (07:41)
[2019-07-02] MEDS: Ferrous Sulfate 325 MG TAB PO SCH (07:41)
[2019-07-02] MEDS: Polyethylene Glycol 3350 17 GM Packet PO SCH (07:42)
[2019-07-02] MEDS: Heparin 5,000 UNITS/ML VIAL SC SCH ×2 (10:30→16:46)
[2019-07-02 16:11] VITALS: BP 116/81; TEMP 97.4
--- NOTE | 2019-07-03 11:28 | DIS ---
DATE OF ADMISSION: 06/29/2019 DATE OF DISCHARGE: 07/02/2019 HOSPITAL COURSE: Mr. Ryder is an 83-year-old with a medical history of advanced dementia, currently a long term resident, who was admitted for reduced responsiveness. He also has significant medical history including chronic systolic heart failure and malnutrition. The patient was diagnosed with severe dehydration and acute hypernatremia. Severe dehydration and acute hypernatremia: Speech and Swallowing evaluated the patient and determined him to be unable to have the ability to swallow. The patient has had such issues in the past and is unlikely to be able to improve in terms of his ability to swallow. The patient's MPOA was contacted, and options were discussed including placement of a PEG tube as well as goals of care. Considering the patient's severe heart failure and dementia, the patient's MPOA agreed to transition the patient to hospice care without placement of a PEG tube. It was agreed that the patient may attempt to eat dysphagic food with known risk for aspiration. This was conveyed to the MPOA. The patient's hypovolemic status and hypernatremia significantly improved prior to discharge. He was discharged to hospice for continued care. PHYSICAL EXAMINATION: VITAL SIGNS: Blood pressure 116/81, pulse 90, respiratory rate 16, oxygen saturation 99 on room air, and temperature 97.4. GENERAL: The patient is awake and alert, following commands, lying comfortably in bed. HEENT: Pupils are equal and reactive. Moist mucosal membranes. LUNGS: Clear to auscultation bilaterally. No wheezing, rales, or rhonchi. CARDIOVASCULAR: Normal S1 and S2. No murmurs, clicks, or gallops. ABDOMEN: Distended. Normal bowel sounds. No guarding. EXTREMITIES: No edema. NEUROLOGIC: The patient has generalized weakness. MEDICATIONS: Discontinued medications: 1. Aspirin. 2. Lovastatin. 3. Lactobacillus. 4. Ferrous sulfate. 5. Folic acid. Changed medications: Lasix 20 mg changed from scheduled to p.r.n. for extremity swelling or shortness of breath due to hypervolemia. Continued medications: 1. Lexapro. 2. Coreg. 3. Doxazosin. 4. Milk of Magnesia. 5. Pepcid. 6. Mirtazapine. 7. MiraLAX. 8. Ipratropium . 9. Potassium chloride. 10. Lisinopril. DISCHARGE INSTRUCTIONS: Specific instructions regarding the patient's dysphagia and goals of care were included in the instruction packet including how to administer medications to the patient with dysphagic diet in order to reduce chances of aspiration. The patient's code status was changed to DNAR as inpatient based on the [facility] request. Job ID: [id number]
--- NOTE | 2019-07-04 08:02 | PQF ---
TAYLOR DEGROOT TONI MD [id number] [facility] A 3302 [id number] CLINICAL DOCUMENTATION CLARIFICATION FORM: POST DISCHARGE Addendum to original discharge summary date: ____ Late entry note date: __ DATE: 07/04/2019 ATTN: Wally Ramirez Please exercise your independent, professional judgment in responding to the clarification form. Clinical indicators are provided on the bottom of this form for your review Please check appropriate box(s): [ ] Encephalopathy: Etiology: [ ] Hypertensive [x ] Metabolic [ ] Toxic [ ] in the setting of underlying dementia [ ] Other (please specify) [ ] Transient Alteration of Awareness [ ] Other diagnosis [ ] Unable to determine In addition, please specify: Present on Admission (POA): [ x ] Yes [ ] No [ ] Unable to determine For continuity of documentation, please document condition throughout progress notes and discharge summary. Thank You. CLINICAL INDICATORS - SIGNS / SYMPTOMS / LABS Vital signs BP 114/66, Pulse 80, Resp 18, Temp 96.7 H&P p1 06/28 Dr Parkinson was noted that his serum sodium was elevated as well as his creatinine H&P p1 06/28 Dr Parkinson presented with concerns for decreased responsiveness H&P p1 06/28 Dr Parkinson Showed evidence of anasarca and ascites H&P p1 06/28 Dr Parkinson Previous hospitalized about a year ago for what appears to be similar to sympytoms where he was confused amnd found to have a toxic metabolic encephalopathy H&P p3 06/28 Dr Parkinson reported to have altered mental status RISK FACTORS ED notes - Hypernatremia H&P p1 06/28 83 year-ols Male H&P p1 06/28 Alzheimer's Dementia H&P p1 06/28 Chronic systolic HF H&P p1 06/28 HTN H&P p1 06/28 HLD H&P p1 06/28 Malnutrition H&P p1 06/28 BPH H&P p3 06/28 Chronic Macrocytic Anemia H&P p3 06/28 Volume Depletion H&P p3 06/28 Dehydration TREATMENTS: MAY 22 IVF NS 1L MAY 22 IV Dextrose 50% 25gm MAY 22 IV D5W 1L (This form is maintained as a part of the permanent medical record) 2014 [employer]. All Rights Reserved [email or web address]
--- NOTE | 2019-07-04 08:03 | PQF ---
TAYLOR DEGROOT TONI MD [id number] [facility] A 3302 [id number] CLINICAL DOCUMENTATION CLARIFICATION FORM: POST DISCHARGE Addendum to original discharge summary date: ____ Late entry note date: __ DATE: 07/04/2019 ATTN: Wally Ramirez Please exercise your independent, professional judgment in responding to the clarification form. Clinical indicators are provided on the bottom of this form for your review Please check appropriate box(s): [ x ] Protein Calorie Malnutrition: [x ] Mild [ ] Moderate [ ] Severe [ ] Other Malnutrition (please specify) __ [ ] Underweight without malnutrition [ ] Cachexia [ ] Other diagnosis [ ] Unable to determine In addition, please specify: Present on Admission (POA): [ ] Yes [ ] No [ ] Unable to determine CLINICAL INDICATORS - SIGNS / SYMPTOMS / LABS BMI 22.0 Labs 06/28: Albumin=3.0 Total Protein=6.3 H&P p1 06/28 Dr Parkinosn presented with concenrs for decreased responsiveness H&P p1 06/28 Dr Parkinson Showed evidence of anasarca and ascites Dietary assessemnt Triggered for unseure wt loss, d/t ascites, which could potentially be masking actual weight loss Dietary assessemnt Dysphagia Hospitalist PN Inability to eat RISK FACTORS ED notes - Hypernatremia H&P p1 06/28 83 year-ols Male H&P p1 06/28 Alzheimer's Dementia H&P p1 06/28 Chronic systolic HF H&P p1 06/28 HTN H&P p1 06/28 HLD H&P p3 06/28 Chronic Macrocytic Anemia H&P p3 06/28 Volume Depletion H&P p3 06/28 Dehydration TREATMENT: Dietary consult Puree diet MAY 22 IVF NS 1L MAY 22 IV Dextrose 50% 25gm MAY 22 IV D5W 1L Recommend Glucerna 1.2 Dietary consult 06/29 Monitor weight change Dietary consult 06/29 Moderate Malnutrition (in acute illness) Energy Intake: <75% of estimated energy requirement for > 7 days Weight Loss: 1-2%/1 week; 5%/ 1 month; 7.5%/3 months Other: mild body fat loss; mild muscle mass loss; mild fluid accumulation; Severe Malnutrition (in acute illness) Energy Intake: < 50% of estimated energy requirement for > 5 days Weight Loss: >1-2%/1 week; >5%/1 month; >7.5%/3 months Other: moderate body fat loss; moderate muscle mass loss; moderate- severe fluid accumulation; measurably reduced flat bed operator strength Moderate Malnutrition (in chronic illness) Energy Intake: <75% of estimated energy requirement for >1 month Weight Loss: 5%/1 month; 7.5%/3 months; 10%/6 months; 20%/1 year Other: mild body fat loss; mild muscle mass loss; mild fluid accumulation Severe Malnutrition (in chronic illness) Energy Intake: <75% of estimated energy requirement for >1 month Weight Loss: >5%/1 month; >7.5%/3 months; >10%/6 months; >20%/1 year Other: severe body fat loss; severe muscle mass loss; severe fluid accumulation ; measurably reduced flat bed operator strength (This form is maintained as a part of the permanent medical record) 2014 [employer]. All Rights Reserved [employer]
--- NOTE | 2019-07-04 08:04 | PQF ---
TAYLOR DEGROOT TONI MD [id number] [facility] A 3302 [id number] CLINICAL DOCUMENTATION CLARIFICATION FORM: POST DISCHARGE Addendum to original discharge summary date: ____ Late entry note date: __ DATE: 07/04/2019 ATTN: Wally Ramirez Please exercise your independent, professional judgment in responding to the clarification form. Clinical indicators are provided on the bottom of this form for your review Please check appropriate box(s): [ ] Acute Renal Failure/BRIAN with Acute Tubular Necrosis (ATN) [ x ] Acute Renal Failure/BRIAN without Acute Tubular Necrosis (ATN) [ ] Acute Cortical Necrosis [ ] Acute Medullary Necrosis [ ] Acute on Chronic Renal Failure please specify Stage of CKD (see below) [ ] Other diagnosis [ ] Unable to determine In addition, please specify: Present on Admission (POA): [ x] Yes [ ] No [ ] Unable to determine National Kidney Foundation Guidelines for CKD Staging Stage I Kidney damage with normal or increased GFRGFR > 90 Stage IIKidney damage with mildly decreased GFRGFR 60-89 Stage III Kidney damage with moderately decreased GFRGFR 30-59 Stage IVKidney damage with severely decreased GFRGFR 16-29 Stage VKidney failureGFR<15 ESRDEnd Stage Renal DiseaseOn dialysis Acute Renal Failure/Acute Kidney Failure defined as: Increases in SCr by (>) 0.3 mg/dl within 48 hours OR- Increases in SCr by (>) 1.5 times baseline, known or presumed to have occurred within the prior 7 days OR- Urine volume < 0.5 ml/kg/hour for 6 hours (KDIGO supplement 2012 for RIFLE/VIDHYA criteria) For continuity of documentation, please document condition throughout progress notes and discharge summary. Thank You. CLINICAL INDICATORS - SIGNS / SYMPTOMS / LABS / RESULTS AND LOCATION IN MR Laboratory 06/28 Creatinine 1.34, BUN 40, GFR 62 Laboratory 06/29 Creatinine 1.11, BUN 35, GFR 77 H&P p1 06/28 Dr Parkinson Showed evidence of some anasarca with some new ascites H&P p1 06/28 Dr Parkinson was noted that his serum sodium was elevated as well as his creatinine H&P p3 06/28 Dr Parkinson reported to have altered mental status RISK FACTORS / RESULTS AND LOCATION IN MR ED notes - Hypernatremia H&P p1 06/28 83 year-ols Male H&P p1 06/28 Alzheimer's Dementia H&P p1 06/28 Chronic systolic HF H&P p1 06/28 HTN H&P p1 06/28 HLD H&P p1 06/28 Malnutrition H&P p1 06/28 BPH H&P p3 06/28 Chronic Macrocytic Anemia H&P p3 06/28 Volume Depletion H&P p3 06/28 Dehydration TREATMENTS / RESULTS AND LOCATION IN MR MAY 22 IVF NS 1L MAY 22 IV Dextrose 50% 25gm MAY 22 IV D5W 1L Collected 06/28 Laboratory Monitoring (This form is maintained as a part of the permanent medical record) 2014 [employer]. All Rights Reserved [email or web address]
--- NOTE | 2019-07-09 05:34 | PQF ---
TAYLOR DEGROOT ADI [id number] [facility] A 3302 [id number] CLINICAL DOCUMENTATION CLARIFICATION FORM: POST DISCHARGE Addendum to original discharge summary date: ____ Late entry note date: __ DATE: 07/09/2019 ATTN: Wally Ramirez Please exercise your independent, professional judgment in responding to the clarification form. Clinical indicators are provided on the bottom of this form for your review In your clinical opinion baed on clinical findings below can you please identify the condition as the reason for Inpatient admission if due to: Please check appropriate box(s): [ ] ATN [ ] Dehydration [ x ] Hypernatremia [ ] Other diagnosis For continuity of documentation, please document condition throughout progress notes and discharge summary. Thank You. CLINICAL INDICATORS - SIGNS / SYMPTOMS / LABS Laboratory 06/28 Creatinine 1.34, BUN 40, GFR 62, Sodium 150 Laboratory 06/29 Creatinine 1.11, BUN 35, GFR 77, Sodium 154 Vital signs BP 114/66, Pulse 80, Resp 18, Temp 96.7 H&P p1 06/28 Dr Parkinson was noted that his serum sodium was elevated as well as his creatinine H&P p1 06/28 Dr Parkinson presented with concerns for decreased responsiveness H&P p1 06/28 Dr Parkinson Showed evidence of anasarca and ascites H&P p1 06/28 Dr Parkinson Previous hospitalized about a year ago for what appears to be similar to symptoms where he was confused and found to have a toxic metabolic encephalopathy H&P p3 06/28 Dr Parkinson reported to have altered mental status H&P p2 06/28 Dr Parkinson Extremities: 1+ edema DS p1 07/01 Dr. Ramirez patient's hypovolemic status and hypernatremia significantly improved RISK FACTORS ED notes - Hypernatremia H&P p1 06/28 83 year-old Male H&P p1 06/28 Alzheimer's Dementia H&P p1 06/28 Chronic systolic HF H&P p1 06/28 HTN H&P p1 06/28 HLD H&P p1 06/28 Malnutrition H&P p1 06/28 BPH H&P p3 06/28 Chronic Macrocytic Anemia H&P p3 06/28 Volume Depletion H&P p3 06/28 Dehydration Physician Documentation ATN H&P p3 06/28 Use of Lasix 20mg Oral TREATMENTS: MAY 22 IVF NS 1L MAY 22 IV Dextrose 50% 25gm MAY 22 IV D5W 1L Collected 06/28 Laboratory Monitoring Collected 06/28 Abdomen/Pelvis CT (This form is maintained as a part of the permanent medical record) 2014 [employer]. All Rights Reserved [email or web address]
== END 2019-07-02 18:35 | disposition hospice, inpatient (51) | DRG 640 ==
LOC: ERS 19:44 → SURG A 22:10
PROVIDERS: ADMIT Internal Medicine; ATTEND Internal Medicine
DX: E87.0 Hyperosmolality and hypernatremia (principal); N17.0 Acute kidney failure with tubular necrosis; G93.41 Metabolic encephalopathy; I50.22 Chronic systolic (congestive) heart failure; E44.1 Mild protein-calorie malnutrition; E86.0 Dehydration; Z66 Do not resuscitate; Z51.5 Encounter for palliative care; E86.9 Volume depletion, unspecified; I11.0 Hypertensive heart disease with heart failure; D53.9 Nutritional anemia, unspecified; G30.9 Alzheimer's disease, unspecified; F02.80 Dementia in other diseases classified elsewhere, unspecified severity, without behavioral disturbance, psychotic disturbance, mood disturbance, and anxiety; E78.5 Hyperlipidemia, unspecified; N40.0 Benign prostatic hyperplasia without lower urinary tract symptoms; Z79.899 Other long term (current) drug therapy; Z95.810 Presence of automatic (implantable) cardiac defibrillator; Z68.22 Body mass index [BMI] 22.0-22.9, adult
CPT/HCPCS: 36415; 36416; 51701; 71045; 74177; 80048; 80053; 81003; 81015; 82140; 82607; 82746; 83690; 83735; 85025; 85610; 85730; 93975; 94640; J1644; J1815; J7620; Q9967